=== PATIENT | male | born 1930 | race Caucasian/White ===

== ENCOUNTER 2016-08-04 16:17 | Inpatient (IN) | payer MEDICARE ==
[2016-08-04] VITALS (8 sets, daily range): BP systolic 100–142; BP diastolic 52–65
[~2016-08-04] VITALS: Ht 177.8 cm; Wt 86.6 kg
[~2016-08-04 16:17] MED LIST: ADLT ASA LOW81 MG PO; ALPRAZOLAM0.25 MG OR; ASPIR-8181 MG OR; ASPIRIN ADULT L81 MG PO; BAYER ASA325 MG PO; CHILD ASA81 MG PO; COLACE100 MG PO; COLACE50 MG OR; COLACE50 MG PO; CRESTOR20 MG OR; GAS-1 OR; LIPITOR80 MG PO; LOMOTIL2.5 MG PO; LOPRESSOR OR; LOPRESSOR50 MG PO; MAG CITRATE PO; METOPROLOL TART50 MG PO; METOPROLOL25 M1 OR; MULT VITAMIN OR; NIASPAN500 MG OR; OMEPRAZOLE20 MG OR; OMEPRAZOLE20 MG PO; PAROXETINE10 MG PO; PRILOSEC20 MG OR; SMZ/TMP DS1 TAB PO; TAMAZAPAM; TEMAZEPAM15 MG OR; ZOCOR80 MG OR
[2016-08-04 17:30] LABS: HEMATOCRIT 41.4 % (39.0-50.0); HEMOGLOBIN 13.5 g/dl (14.0-18.0); IMMATURE GRANULOCYTES 0.2 % (0.0-1.0); MEAN CELL VOLUME 89.6 fL CALC (80.0-100.0); MEAN CORPUSCULAR HGB 29.2 pG CALC (26.0-32.0); MEAN CORPUSCULAR HGB CONC 32.6 g/L CALC (32.0-36.0); NEUT# 5.64 thou/uL (1.82-7.42); RED BLOOD COUNT 4.62 mill/uL (4.70-6.10); RED CELL DISTRI WIDTH 13.9 % (11.5-15.5)
[2016-08-04 18:08] LABS: ALKALINE PHOSPHATASE 130 u/l (38-126); ANION GAP 17 (6-22 (CALC)); BILIRUBIN, TOTAL 0.6 mg/dL (0.0-1.4); BUN 12 mg/dL (8-23); BUN/CREATININE RATIO 10 (12-20 (CALC)); CARBON DIOXIDE 20 mmol/l (22-30); CHLORIDE 107 mmol/l (95-108); CREATININE 1.2 mg/dL (0.7-1.3); GFR 58 ML/MIN (>=60 (CALC)); GFR FOR AFR.AMER. > 60 ML/MIN (>=60 (CALC)); GLUCOSE 111 mg/dL (82-115); POTASSIUM 3.8 mmol/l (3.5-5.1); SGOT/AST 33 u/l (19-48); SGPT/ALT 31 u/l (11-66); SODIUM 141 mmol/l (137-146); TOTAL PROTEIN 7.7 g/dL (6.3-8.2)
[2016-08-04 18:20] LABS: MYOGLOBIN 110 ng/mL (0 - 121)
[2016-08-04 18:32] LABS: PROTHROMBIN TIME 10.6 SECONDS (9.0-12.5)
[2016-08-04 20:48] LABS: URINE BILIRUBIN - DIPSTICK NEGATIVE (NEGATIVE); URINE BLOOD DIPSTICK TRACE-INTACT (NEGATIVE); URINE CLARITY CLEAR; URINE COLOR YELLOW; URINE GLUCOSE - DIPSTICK NEGATIVE (NEGATIVE); URINE KETONE NEGATIVE (NEGATIVE); URINE LEUK ESTERASE NEGATIVE (NEGATIVE); URINE NITRITE - DIPSTICK NEGATIVE (Negative); URINE PH 5.5 (4.5-8.0); URINE PROTEIN - DIPSTICK NEGATIVE (NEG-TRACE); URINE UROBILINOGEN - DIPSTICK 0.2 E.U./dL (0.2)
[2016-08-05 02:06] VITALS: BP 95/55
[2016-08-05 04:05] VITALS: BP 110/55
[2016-08-05 06:11] VITALS: BP 103/54
[2016-08-05 08:07] VITALS: BP 118/56
[2016-08-05 09:42] LABS: HEMATOCRIT 39.9 % (39.0-50.0); HEMOGLOBIN 13.2 g/dl (14.0-18.0); IMMATURE GRANULOCYTES 0.3 % (0.0-1.0); MEAN CELL VOLUME 90.1 fL CALC (80.0-100.0); MEAN CORPUSCULAR HGB 29.8 pG CALC (26.0-32.0); MEAN CORPUSCULAR HGB CONC 33.1 g/L CALC (32.0-36.0); NEUT# 4.67 thou/uL (1.82-7.42); RED BLOOD COUNT 4.43 mill/uL (4.70-6.10)
[2016-08-05] MEDS ORDERED: XARELTO20 MG PO (09:46)
[2016-08-05 09:50] LABS: ALBUMIN 3.4 g/dL (3.2-5.0); ALKALINE PHOSPHATASE 101 u/l (38-126); ANION GAP 13 (6-22 (CALC)); BILIRUBIN, TOTAL 0.8 mg/dL (0.0-1.4); BUN 10 mg/dL (8-23); BUN/CREATININE RATIO 10 (12-20 (CALC)); CALCIUM 8.8 mg/dL (8.4-10.2); CARBON DIOXIDE 26 mmol/l (22-30); CHLORIDE 107 mmol/l (95-108); GFR > 60 ML/MIN (>=60 (CALC)); GFR FOR AFR.AMER. > 60 ML/MIN (>=60 (CALC)); GLUCOSE 102 mg/dL (82-115); POTASSIUM 4.1 mmol/l (3.5-5.1); SGOT/AST 24 u/l (19-48); SGPT/ALT 27 u/l (11-66); SODIUM 142 mmol/l (137-146); TOTAL PROTEIN 6.6 g/dL (6.3-8.2)
[2016-08-05 10:37] VITALS: BP 139/69
== END 2016-08-05 11:50 | disposition home or self-care (01) | DRG 310 ==
LOC: ENPENDDIS → ED 16:17 → ED-I 17:39 → ED 18:34 → ICU 18:35
PROVIDERS: Emergency Medicine; ADMIT Internal Medicine; ATTEND Internal Medicine
DX: I48.0 Paroxysmal atrial fibrillation (principal); I10 Essential (primary) hypertension; I25.10 Atherosclerotic heart disease of native coronary artery without angina pectoris; E78.5 Hyperlipidemia, unspecified; I25.2 Old myocardial infarction; Z87.891 Personal history of nicotine dependence; Z91.14 Patient's other noncompliance with medication regimen; Z95.5 Presence of coronary angioplasty implant and graft
CPT/HCPCS: J1650

== ENCOUNTER 2016-10-27 07:47 | Inpatient (IN) | payer MEDICARE ==
[~2016-10-27] VITALS: Ht 177.8 cm; Wt 81.8 kg
[2016-10-27] VITALS (13 sets, daily range): BP systolic 99–125; BP diastolic 47–66
[~2016-10-27 07:47] MED LIST changes: +XARELTO20 MG PO
[2016-10-27] MEDS ORDERED: CARDIZEM CD240 MG PO (08:08)
[2016-10-27 08:15] LABS: HEMATOCRIT 45.6 % (39.0-50.0); HEMOGLOBIN 15.1 g/dl (14.0-18.0); IMMATURE GRANULOCYTES 0.3 % (0.0-1.0); MEAN CELL VOLUME 89.9 fL CALC (80.0-100.0); MEAN CORPUSCULAR HGB 29.8 pG CALC (26.0-32.0); MEAN CORPUSCULAR HGB CONC 33.1 g/L CALC (32.0-36.0); NEUT# 5.42 thou/uL (1.82-7.42); RED BLOOD COUNT 5.07 mill/uL (4.70-6.10); RED CELL DISTRI WIDTH 13.8 % (11.5-15.5)
[2016-10-27 08:23] LABS: ALBUMIN 4.3 g/dL (3.2-5.0); ALKALINE PHOSPHATASE 112 u/l (38-126); ANION GAP 19 (6-22 (CALC)); BILIRUBIN, TOTAL 0.8 mg/dL (0.0-1.4); BUN 10 mg/dL (8-23); BUN/CREATININE RATIO 8 (12-20 (CALC)); CALCIUM 9.1 mg/dL (8.4-10.2); CARBON DIOXIDE 21 mmol/l (22-30); CHLORIDE 106 mmol/l (95-108); CREATININE 1.4 mg/dL (0.7-1.3); GFR 48 ML/MIN (>=60 (CALC)); GFR FOR AFR.AMER. 58 ML/MIN (>=60 (CALC)); GLUCOSE 121 mg/dL (82-115); POTASSIUM 3.2 mmol/l (3.5-5.1); SGOT/AST 26 u/l (19-48); SGPT/ALT 28 u/l (11-66); SODIUM 143 mmol/l (137-146); TOTAL PROTEIN 7.6 g/dL (6.3-8.2)
[2016-10-27 08:33] LABS: PROTHROMBIN TIME 10.5 SECONDS (9.0-12.5)
[2016-10-27 08:36] LABS: MYOGLOBIN 73 ng/mL (0 - 121)
[2016-10-28 03:18] VITALS: BP 147/67
[2016-10-28 05:30] VITALS: BP 132/60
[2016-10-28 07:30] VITALS: BP 122/70
[2016-10-28 09:30] VITALS: BP 121/61
[2016-10-28 11:30] VITALS: BP 104/67
[2016-10-28 12:08] LABS: ANION GAP 14 (6-22 (CALC)); BUN 11 mg/dL (8-23); BUN/CREATININE RATIO 10 (12-20 (CALC)); CARBON DIOXIDE 26 mmol/l (22-30); CHLORIDE 105 mmol/l (95-108); GFR > 60 ML/MIN (>=60 (CALC)); GFR FOR AFR.AMER. > 60 ML/MIN (>=60 (CALC)); GLUCOSE 88 mg/dL (82-115); POTASSIUM 4.5 mmol/l (3.5-5.1); SODIUM 140 mmol/l (137-146)
== END 2016-10-28 13:15 | disposition home or self-care (01) | DRG 309 ==
LOC: ENPENDDIS → ED 07:47 → ED-I 08:48 → ED 09:01 → ICU 09:02
PROVIDERS: Emergency Medicine; ADMIT Internal Medicine; ATTEND Internal Medicine
DX: I48.0 Paroxysmal atrial fibrillation (principal); N17.9 Acute kidney failure, unspecified; I10 Essential (primary) hypertension; I25.10 Atherosclerotic heart disease of native coronary artery without angina pectoris; E87.6 Hypokalemia; E78.5 Hyperlipidemia, unspecified; I25.2 Old myocardial infarction; Z85.038 Personal history of other malignant neoplasm of large intestine; Z93.3 Colostomy status; Z95.5 Presence of coronary angioplasty implant and graft; Z79.01 Long term (current) use of anticoagulants; Z87.891 Personal history of nicotine dependence

== ENCOUNTER 2018-11-22 08:11 | Emergency (ER) | payer MEDICARE ==
[~2018-11-22] VITALS: Ht 177.8 cm; Wt 80.0 kg
[~2018-11-22 08:11] MED LIST changes: +CARDIZEM CD240 MG PO
[2018-11-22 08:54] VITALS: BP 138/77
== END 2018-11-22 08:55 | disposition home or self-care (01) ==
LOC: ED 08:11
DX: B08.4 Enteroviral vesicular stomatitis with exanthem (principal); I10 Essential (primary) hypertension; I25.10 Atherosclerotic heart disease of native coronary artery without angina pectoris; I48.91 Unspecified atrial fibrillation; I25.2 Old myocardial infarction

== ENCOUNTER 2019-10-24 16:28 | Emergency (ER) | payer MEDICARE ==
[2019-10-24 17:42] LABS: IMMATURE GRANULOCYTES 0.3 % (0.0-5.0); MEAN CELL VOLUME 90.4 fL CALC (80.0-100.0); MEAN CORPUSCULAR HGB 29.3 pG CALC (26.0-32.0); MEAN CORPUSCULAR HGB CONC 32.4 g/dL CAL (32.0-36.0); NEUT# 4.51 thou/uL (1.82-7.42); RED BLOOD COUNT 4.37 mill/uL (4.70-6.10); RED CELL DISTRI WIDTH 14.3 % (11.5-15.5)
[2019-10-24 17:49] LABS: HEMATOCRIT 39.5 % (39.0-50.0); HEMOGLOBIN 12.8 g/dl (14.0-18.0)
[2019-10-24 17:57] LABS: ALBUMIN 3.8 g/dL (3.2-5.0); ALKALINE PHOSPHATASE 106 u/l (38-126); ANION GAP 13 (6-22 (CALC)); BILIRUBIN, TOTAL 0.7 mg/dL (0.0-1.4); BUN 12 mg/dL (8-23); BUN/CREATININE RATIO 10 (12-20 (CALC)); CARBON DIOXIDE 23 mmol/l (22-30); CHLORIDE 105 mmol/l (95-108); CREATININE 1.2 mg/dL (0.7-1.3); GFR 57 ML/MIN (>=60 (CALC)); GFR FOR AFR.AMER. > 60 ML/MIN (>=60 (CALC)); POTASSIUM 3.9 mmol/l (3.5-5.1); SGOT/AST 27 u/l (19-48); SODIUM 137 mmol/l (137-146); TOTAL PROTEIN 7.1 g/dL (6.3-8.2)
[2019-10-24 17:58] LABS: ACT PARTIAL THROMBO TIME 27.7 SECONDS (20.0-32.5); PROTHROMBIN TIME 10.6 SECONDS (9.0-12.5)
[2019-10-24 18:40] VITALS: BP 185/85
== END 2019-10-24 18:40 | disposition home or self-care (01) ==
LOC: ED 16:28
DX: R20.2 Paresthesia of skin (principal); I10 Essential (primary) hypertension; I25.10 Atherosclerotic heart disease of native coronary artery without angina pectoris; I25.2 Old myocardial infarction; I48.91 Unspecified atrial fibrillation

== ENCOUNTER 2020-02-04 10:44 | Emergency (ER) | payer OTHER, MEDICARE ==
[~2020-02-04] VITALS: Ht 177.8 cm; Wt 84.0 kg
[2020-02-04] MEDS ORDERED: MUPIROCIN21 TOP (12:09)
[2020-02-04 12:10] VITALS: BP 148/70
== END 2020-02-04 12:10 | disposition home or self-care (01) | DRG 204 ==
LOC: ED 10:44
DX: R07.81 Pleurodynia (principal); S41.111A Laceration without foreign body of right upper arm, initial encounter; I10 Essential (primary) hypertension; I25.10 Atherosclerotic heart disease of native coronary artery without angina pectoris; I48.91 Unspecified atrial fibrillation; I25.2 Old myocardial infarction; F17.200 Nicotine dependence, unspecified, uncomplicated; W11.XXXA Fall on and from ladder, initial encounter; Y93.89 Activity, other specified; Y92.009 Unspecified place in unspecified non-institutional (private) residence as the place of occurrence of the external cause; Z95.5 Presence of coronary angioplasty implant and graft

== ENCOUNTER 2021-01-15 09:38 | Inpatient (IN) | payer OTHER, MEDICARE ==
[~2021-01-15] VITALS: Ht 177.8 cm; Wt 66.6 kg
[~2021-01-15 09:38] MED LIST changes: +MUPIROCIN21 TOP
[2021-01-15 10:32] LABS: HEMATOCRIT 41.3 % (39.0-50.0); IMMATURE GRANULOCYTES 0.2 % (0.0-5.0); MEAN CELL VOLUME 94.7 fL CALC (80.0-100.0); MEAN CORPUSCULAR HGB 29.8 pG CALC (26.0-32.0); MEAN CORPUSCULAR HGB CONC 31.5 g/dL CAL (32.0-36.0); NEUT# 6.65 thou/uL (1.82-7.42); RED BLOOD COUNT 4.36 mill/uL (4.70-6.10); RED CELL DISTRI WIDTH 14.1 % (11.5-15.5)
[2021-01-15 10:39] LABS: PROTHROMBIN TIME 10.2 SECONDS (9.0-12.5)
[2021-01-15 10:40] LABS: ALBUMIN 4.1 g/dL (3.2-5.0); ALKALINE PHOSPHATASE 101 u/l (38-126); ANION GAP 12 (6-22 (CALC)); BILIRUBIN, TOTAL 0.9 mg/dL (0.0-1.4); BUN 15 mg/dL (8-23); BUN/CREATININE RATIO 12 (12-20 (CALC)); CARBON DIOXIDE 25 mmol/l (22-30); CHLORIDE 104 mmol/l (95-108); CREATININE 1.3 mg/dL (0.7-1.3); GFR 52 ML/MIN (>=60 (CALC)); GFR FOR AFR.AMER. > 60 ML/MIN (>=60 (CALC)); POTASSIUM 4.3 mmol/l (3.5-5.1); SGOT/AST 35 u/l (19-48); SODIUM 136 mmol/l (137-146); TOTAL PROTEIN 7.5 g/dL (6.3-8.2)
[2021-01-15 10:52] LABS: MYOGLOBIN 479 ng/mL (0 - 121)
[2021-01-15] MEDS ORDERED: ATORVASTATIN CA80 MG PO (11:39)
[2021-01-15 20:00] VITALS: BP 149/66
[2021-01-16] VITALS (7 sets, daily range): BP systolic 74–157; BP diastolic 52–81
[2021-01-16 06:04] LABS: HEMATOCRIT 40.3 % (39.0-50.0); HEMOGLOBIN 12.8 g/dl (14.0-18.0); MEAN CELL VOLUME 94.8 fL CALC (80.0-100.0); MEAN CORPUSCULAR HGB 30.1 pG CALC (26.0-32.0); MEAN CORPUSCULAR HGB CONC 31.8 g/dL CAL (32.0-36.0); RED BLOOD COUNT 4.25 mill/uL (4.70-6.10)
[2021-01-16 06:34] LABS: ANION GAP 12 (6-22 (CALC)); BUN 12 mg/dL (8-23); BUN/CREATININE RATIO 12 (12-20 (CALC)); CALCULATED LDLCHOLESTEROL 61 mg/dL (62-129 (CALC)); CARBON DIOXIDE 24 mmol/l (22-30); CHLORIDE 105 mmol/l (95-108); CHOLESTEROL HDL RATIO 2.7 (<4.4 (CALC)); CREATININE 1.1 mg/dL (0.7-1.3); GFR > 60 ML/MIN (>=60 (CALC)); GFR FOR AFR.AMER. > 60 ML/MIN (>=60 (CALC)); HDL CHOLESTEROL 46 mg/dL (>=40); POTASSIUM 3.8 mmol/l (3.5-5.1); SODIUM 138 mmol/l (137-146); TOTAL CHOLESTEROL 121 mg/dl (0-199); TOTAL TRIGLYCERIDES 71 mg/dl (30-149); VLDL CHOLESTROL 14 mg/dl (0-38 (CALC))
[2021-01-17 00:35] VITALS: BP 142/75
[2021-01-17 04:53] VITALS: BP 131/67
[2021-01-17 06:03] LABS: ANION GAP 12 (6-22 (CALC)); BUN 14 mg/dL (8-23); BUN/CREATININE RATIO 14 (12-20 (CALC)); CARBON DIOXIDE 25 mmol/l (22-30); CHLORIDE 105 mmol/l (95-108); GFR > 60 ML/MIN (>=60 (CALC)); GFR FOR AFR.AMER. > 60 ML/MIN (>=60 (CALC)); MAGNESIUM 2.1 mg/dL (1.6-2.3); POTASSIUM 4.4 mmol/l (3.5-5.1); SODIUM 137 mmol/l (137-146)
[2021-01-17 06:28] LABS: HEMATOCRIT 39.1 % (39.0-50.0); HEMOGLOBIN 12.6 g/dl (14.0-18.0); MEAN CELL VOLUME 94.2 fL CALC (80.0-100.0); MEAN CORPUSCULAR HGB 30.4 pG CALC (26.0-32.0); MEAN CORPUSCULAR HGB CONC 32.2 g/dL CAL (32.0-36.0); RED BLOOD COUNT 4.15 mill/uL (4.70-6.10); RED CELL DISTRI WIDTH 13.9 % (11.5-15.5)
[2021-01-17 07:02] VITALS: BP 155/77
[2021-01-17 10:33] VITALS: BP 118/67
[2021-01-17] MEDS ORDERED: ASPIRIN REGULA325 M1 PO (12:14)
== END 2021-01-17 12:59 | disposition home health service (06) | DRG 66 ==
LOC: ED 09:38 → ED-I 10:35 → ED 12:41 → ED-I 12:42 → MS2 23:50 → ED-I 01-16 13:21 → MS2 01-16 13:21
PROVIDERS: Family Medicine; Nurse Practitioner; ADMIT Hospitalist; ATTEND Hospitalist
DX: I63.50 Cerebral infarction due to unspecified occlusion or stenosis of unspecified cerebral artery (principal); R47.81 Slurred speech; R29.810 Facial weakness; R29.704 NIHSS score 4; I10 Essential (primary) hypertension; I25.10 Atherosclerotic heart disease of native coronary artery without angina pectoris; E78.5 Hyperlipidemia, unspecified; I48.91 Unspecified atrial fibrillation; G20 Parkinson's disease; I25.2 Old myocardial infarction; Z85.038 Personal history of other malignant neoplasm of large intestine; Z87.891 Personal history of nicotine dependence; Z95.5 Presence of coronary angioplasty implant and graft; Z20.822 Contact with and (suspected) exposure to COVID-19

== ENCOUNTER 2021-04-16 13:30 | Emergency (ER) | payer OTHER, MEDICARE ==
[~2021-04-16] VITALS: Ht 177.8 cm; Wt 70.0 kg
[~2021-04-16 13:30] MED LIST changes: +ASPIRIN REGULA325 M1 PO; +ATORVASTATIN CA80 MG PO
[2021-04-16 14:01] VITALS: BP 138/63
[2021-04-16 14:01] LABS: GFR 57 ML/MIN (>=60 (CALC)); GFR FOR AFR.AMER. > 60 ML/MIN (>=60 (CALC))
[2021-04-16 14:04] LABS: HEMOGLOBIN 12.4 g/dl (14.0-18.0); IMMATURE GRANULOCYTES 1.6 % (0.0-5.0); MEAN CELL VOLUME 93.5 fL CALC (80.0-100.0); MEAN CORPUSCULAR HGB 29.7 pG CALC (26.0-32.0); MEAN CORPUSCULAR HGB CONC 31.8 g/dL CAL (32.0-36.0); NEUT# 8.22 thou/uL (1.82-7.42); RED BLOOD COUNT 4.17 mill/uL (4.70-6.10); RED CELL DISTRI WIDTH 14.1 % (11.5-15.5)
[2021-04-16 14:17] LABS: ALBUMIN 3.8 g/dL (3.2-5.0); ALKALINE PHOSPHATASE 103 u/l (38-126); ANION GAP 12 (6-22 (CALC)); BILIRUBIN, TOTAL 0.9 mg/dL (0.0-1.4); BUN 14 mg/dL (8-23); BUN/CREATININE RATIO 12 (12-20 (CALC)); CARBON DIOXIDE 25 mmol/l (22-30); CHLORIDE 106 mmol/l (95-108); CREATININE 1.2 mg/dL (0.7-1.3); GFR 57 ML/MIN (>=60 (CALC)); GFR FOR AFR.AMER. > 60 ML/MIN (>=60 (CALC)); LIPASE 78 u/l (23-300); POTASSIUM 4.4 mmol/l (3.5-5.1); SGOT/AST 37 u/l (19-48); SODIUM 138 mmol/l (137-146); TOTAL PROTEIN 7.2 g/dL (6.3-8.2)
== END 2021-04-16 15:45 | disposition short-term general hospital (02) | DRG 87 ==
LOC: ED 13:30
PROVIDERS: Family Medicine
DX: S06.300A Unspecified focal traumatic brain injury without loss of consciousness, initial encounter (principal); M54.50 Low back pain, unspecified; S41.111A Laceration without foreign body of right upper arm, initial encounter; S81.811A Laceration without foreign body, right lower leg, initial encounter; I25.2 Old myocardial infarction; I10 Essential (primary) hypertension; I25.10 Atherosclerotic heart disease of native coronary artery without angina pectoris; I48.91 Unspecified atrial fibrillation; E78.5 Hyperlipidemia, unspecified; W11.XXXA Fall on and from ladder, initial encounter; Z95.5 Presence of coronary angioplasty implant and graft; Z86.73 Personal history of transient ischemic attack (TIA), and cerebral infarction without residual deficits; Z85.038 Personal history of other malignant neoplasm of large intestine
CPT/HCPCS: J1953; Q9967

== ENCOUNTER 2021-05-18 09:38 | Inpatient (IN) | payer OTHER, MEDICARE ==
[~2021-05-18] VITALS: Ht 177.8 cm; Wt 72.0 kg
--- NOTE | 2021-05-18 09:38 | NUR ---
PT TO ROOM VIA EMS
--- NOTE | 2021-05-18 10:15 | NUR ---
PT REPORTS "GAS PAIN" ACROSS LOWER ABDOMEN AND RATES AT 10/10. PT REPORTS USUALLY IN THE MORNINGS HE HAS A SIMILAR PAIN BUT USUALLY PASSES GAS THROUGH HIS OSTOMY, BUT NOT TODAY. PT WITH +BOWEL SOUNDS. PT RECOVERING FROM INJURIES SUSTAINED IN A RECENT FALL. PT RETURNED HOME ON SUNDAY FROM REHAB FACILITY. PT WEARS BRACE AROUND TORSO FOR FRACTURE IN BACK.
[2021-05-18 11:06] LABS: ALBUMIN 3.4 g/dL (3.2-5.0); ALKALINE PHOSPHATASE 196 u/l (38-126); AMYLASE 76 u/l (30-110); ANION GAP 14 (6-22 (CALC)); BILIRUBIN, TOTAL 0.6 mg/dL (0.0-1.4); BUN 19 mg/dL (8-23); BUN/CREATININE RATIO 18 (12-20 (CALC)); CARBON DIOXIDE 25 mmol/l (22-30); CHLORIDE 102 mmol/l (95-108); CREATININE 1.1 mg/dL (0.7-1.3); GFR > 60 ML/MIN (>=60 (CALC)); GFR FOR AFR.AMER. > 60 ML/MIN (>=60 (CALC)); LIPASE 142 u/l (23-300); POTASSIUM 4.2 mmol/l (3.5-5.1); SGOT/AST 25 u/l (19-48); SODIUM 137 mmol/l (137-146); TOTAL PROTEIN 6.8 g/dL (6.3-8.2)
[2021-05-18 11:08] LABS: HEMATOCRIT 37.6 % (39.0-50.0); HEMOGLOBIN 11.8 g/dl (14.0-18.0); IMMATURE GRANULOCYTES 0.1 % (0.0-5.0); MEAN CELL VOLUME 94.7 fL CALC (80.0-100.0); MEAN CORPUSCULAR HGB 29.7 pG CALC (26.0-32.0); MEAN CORPUSCULAR HGB CONC 31.4 g/dL CAL (32.0-36.0); NEUT# 6.91 thou/uL (1.82-7.42); RED BLOOD COUNT 3.97 mill/uL (4.70-6.10)
--- NOTE | 2021-05-18 11:15 | NUR ---
PT CONTINUES TO COMPLAIN OF ABDOMINAL PAIN, NO CHANGE AFTER MEDICATION. PT STATES "I WONDER IF THERE IS SOME STOOL BLOCKING". PT DENIES ANY HISTORY OF BOWEL BLOCKAGE. PT WITH NEIGHBOR AT THE BEDSIDE. PT STABLE.
--- NOTE | 2021-05-18 12:15 | NUR ---
PT RESTING COMFORTABLY, PAIN IMPROVED. WILL CONTINUE TO MONITOR.
--- NOTE | 2021-05-18 13:15 | NUR ---
PT'S SON IS PRESENT AND ABLE TO PROVIDE INFORMATION ABOUT PT'S HOME MEDICATIONS. PT IS ASLEEP AT THIS TIME, VSS. WILL CONTINUE TO MONITOR.
--- NOTE | 2021-05-18 13:30 | NUR ---
DR CRAIG IN TO SPEAK WITH PT AND SON ABOUT IMAGING RESULTS AND POC
--- NOTE | 2021-05-18 13:44 | NUR ---
HOSPITALIST IN TO SPEAK WITH PT AND SON
--- NOTE | 2021-05-18 14:30 | NUR ---
EKG PERFORMED, PT'S SON LEAVING AND WILL RETURN LATER. PT RESTING INTERMITTENLY WITH SURGES OF ABDOMINAL PAIN. PT STABLE, WILL CONTINUE TO MONITOR.
--- NOTE | 2021-05-18 15:10 | NUR ---
CALL PLACED TO MED/SURG TO GIVE REPORT-RN WILL RETURN CALL.
--- NOTE | 2021-05-18 15:14 | NUR ---
PT RESTING WITH EYES CLOSED. VSS. WILL CONTINUE TO MONITOR.
--- NOTE | 2021-05-18 15:40 | NUR ---
MS NURSE STILL UNABLE TO TAKE REPORT. PATIENT RESTING COMFORTABLY IN STRETCHER. CALL [facility] WITHIN REACH.
--- NOTE | 2021-05-18 16:22 | NUR ---
REPORT RECIEVED FROM ELMA MARTIN FROM ER.
--- NOTE | 2021-05-18 16:25 | NUR ---
ELMA SALDAÑA CALLED AND SBAR REPORT GIVEN. PT TO GO TO ROOM 274.
[2021-05-18 16:35] VITALS: BP 126/62
--- NOTE | 2021-05-18 16:40 | NUR ---
PT TO MED/SURG VIA STRETCHER IN STABLE CONDITION. PT'S BELONGINGS AND PAPERWORK HANDED OFF TO ELMA SALDAÑA.
--- NOTE | 2021-05-18 17:14 | NUR ---
PT REFUSES TO ANSWER ADMISSION QUESTIONS AT THIS TIME DUE TO BEING IN TOO MUCH PAIN. CALL LIGHT WITHIN REACH.
--- NOTE | 2021-05-18 18:10 | NUR ---
PT STILL DENIES TO ANSWER ADMISSION QUESTIONS. ENCOURAGED PT TO USE CALL LIGHT. CALL LIGHT WITHIN REACH.
[2021-05-18 18:20] VITALS: BP 130/78
--- NOTE | 2021-05-18 18:56 | NUR ---
ATTEMPTED ONCE AGAIN TO ASK ADMISSION QUESTIONS STILL DENINES. CALL LIGHT WITHIN REACH
--- NOTE | 2021-05-18 19:20 | NUR ---
PT AWAKE WATCHING TV. REPORTS FEELING MUCH BETTER. ADMISSION COMPLETED AT THIS TIME AND ADMISSION ASSESSMENT COMPLETED AT THIS TIME. I WAS TOLD ON REPORT BY DAY NURSE THAT THE PT WAS IN PAIN EARLIER ON HER SHIFT AND REFUSED TO ANSWER QUESTIONS 3X, BUT PT ANSWERED APPROPRIATELY W/OUT COMPLAINT AT THIS TIME, SO I WAS ABLE TO COMPLETE ADMISSION ASSESSMENT AND QUESTIONARE AT THIS TIME. POC WAS DISCUSSED WITH THE PT AT THIS TIME AND HE WAS ENCOURAGED TO CALL NEEDS ARISE. I WAS LEAVING THE ROOM THE PT ASKED IF I WOULD HAND HIM HIS CELLPHONE, UPON LOOKING, I WAS UNABLE TO FIND A CELLPHONE, HE STATED "I PROBOBALY LEFT IT OVER ON THE TABLE OVER THERE IN MY ROOM" PT WAS POINTING TOWARD THE WINDOW. I REORIENTED HIM GENTLY TO THE FACT THAT HE WAS IN THE HOSPITAL, HE ACKNOWLEDGED THAT HE DID KNOW THAT, BUT THAT HE PLACED HIS PHONE ON THE TABLE THROUGH THE WINDOW. THERE IS NOT A TABLE ON THE OTHER SIDE OF THE PT'S WINDOW. BED ALARM WAS PLACED ON AT THIS TIME PREVENTATIVE FOR POSSIBLE CONFUSION OR FORGETFULLNESS. PT OTHERWISE SEEMED LOCX3 AND WAS APPROPRIATE ANSWERING QUESTIONS WHEN ASKED.
[2021-05-18 20:00] VITALS: BP 112/70
--- NOTE | 2021-05-18 21:45 | NUR ---
CALL PLACED TO PHARMACY TO ATTEMPT TO ADVANCE PLACEMENT OF GASTRO/CONTRAST ORDER, SPOKE TO MIKEY. ANIMAL STUNNER HERE WITH SELF ON MED SURG TO CONFIRM ORDER WAS PLACED. CONFIRMED RECEIPT BY [facility].
--- NOTE | 2021-05-18 21:57 | NUR ---
PT MEDICATED ORDERS PROVIDE. PT WAS SLEEPING I ENTERED THE ROOM. GENERATION MANAGER VISITED ROOM TO DISCUSS CONTRAST ORDERS/WILL CONTACT [facility] FOR CONFIRMATION AND TO EXPEDITE ORDER.
--- NOTE | 2021-05-18 22:45 | NUR ---
CALLED [facility] RECONFIRMING RECEIPT OF CONTRAST ORDER, SPOKE WITH ADAIR PHARMACIST WHO NOW STATES THAT THEY NEVER RECEIVED THE ORDERS. I FAXED THE GASTROGRAFIN ORDER AT THIS TIME, SHE STATED THAT SHE WILL PLACE ODER R/WAY.
--- NOTE | 2021-05-18 23:19 | NUR ---
PT MEDICATED WITH GASTROGRAFIN AND JUICE COMBO AT THIS TIME. NO S/O DISTRESS AND PT PLEASANTLY AGREED TO DRINK CONTRAST/JUICE. STATED "OH THAT IS GOOD." PT ASKED FOR HIS WATCH, PROVIDED HIS BAG OF BELONGINGS AND ASSISTED LOOKING FOR WATCH, UNABLE TO LOCATE, POSSIBLE CONFUSION ON BELONGINS, I WILL CHECK PT'S CHART FOR BELONGING LIST. PT IS ABLE TO TELL ME HIS NAME, , CURRENT YEAR OF 2020 QUICKLY, BUT WAS UNABLE TO TELL ME HIS LOCATION AT THIS TIME.
[2021-05-19] VITALS (19 sets, daily range): BP systolic 95–152; BP diastolic 00–72
--- NOTE | 2021-05-19 00:29 | NUR ---
PT STARTED DRINKING THIRD DOSE OF GASTROGRAFIN AT THIS TIME, RADIOLOGY NOTIFIED.
--- NOTE | 2021-05-19 01:05 | NUR ---
ENTERED ROOM TO ASSIST IN PREPPING PT FOR RADIOLOGY SCAN. WE INFORMED THE PT IT WAS TIME TO GO DOWN AND HE ASKED THAT WE HELP HIM EMPTY HIS COLOSTOMY. UPON INSPECTION HIS COLOSTOMY WAS VERY FULL OF GAS AND 400CC OF BLOOD WITH SMALL AMOUNT OF FORMED STOOL WAS EMPTIED WITH ODOR OF GIBLOOD. I ASKED THE PT IF HE HAS BEEN HAVING THAT, HE REPLIED "SOME". THE FLIGHT OPERATION COORDINATOR WAS ASSISTING THE PT INTO THE WHEEL CHAIR, THE PT BECAME LIMP AND WAS NON-RESPONSIVE, RAPID RESPONSE WAS CALLED AND TRANSIT BUS OPERATOR, FLIGHT OPERATION COORDINATOR ON FLOOR AND FELLOW FLOOR NURSE HAD TO FORCE THE PT FROM THE WHEEL CHAIR TO THE BED WHERE HE BEGAN TO COME TO AND RESPOND TO US VERY GROGGY IN APPEARANCE. V/S OBTAINED 100SBP PALPATED, 02 99%, AFEBRILE, HR100, GLUCOSE 178. EKG WAS ORDERED [id number], TYPE AND SCREENED, OCCULT STOOL ALL ORDERED.
[2021-05-19 01:48] LABS: HEMATOCRIT 47.9 % (39.0-50.0); HEMOGLOBIN 14.9 g/dl (14.0-18.0)
--- NOTE | 2021-05-19 01:55 | NUR ---
PHYSICIAN WAS NOTIFIED OF RAPID RESPONSE AND ORDERS PLACED. NEW ORDERS RECEIVED AT THIS TIME AND PLACED IN CHART AND FAXED TO [facility]. PT TAKEN TO RADIOLOGY FOR AWAITED SCAN ORDERS PROVIDE AND PER PHYSICIAN REQUEST. PT WAS TAKEN ON STRETCHER. BP NOW 111/65.
--- NOTE | 2021-05-19 02:15 | NUR ---
PT RETURNED TO MED SURG UNIT VIA STRETCHER ACCOMPANIED BY KEVIN. PT TOLERATED WELL AND WAS ASSISTED BACK TO THE BED FROM STRETCHER. THE PT APPEARS TOO WEAKENED TO SELF TRANSFER, DENIES ANY COMPLAINTS AT THIS TIME. MODERATE AMOUNT OF LIQUID AND AIR IS IN COLOSTOMY BAG AT THIS TIME.
--- NOTE | 2021-05-19 03:30 | NUR ---
PHYSICIAN CUT OUT AND MARKING MACHINE OPERATOR NOTIFIED OF POSSIBLE ALLERGY CROSS-SENSATIVITY, ORDERS TO HOLD PROTONIX AT THIS TIME. PHYSICIAN ALSO WAS NOTIFIED OF HGB RESULTS AT THIS TIME. OCCULT STOOL HAS NOT RESULTED YET AT THIS TIME, BUT 400CC OF BLOODY LIQUID EMPTIED FROM COLOSTOMY. BP 115/63,HR102, 98.4T,98%02. PT APPEARS STABLE AT THIS TIME AND HAS EYES CLOSED, BUT AWAKENS AND RESPONDS APPROPRIATLEY TO MY VOICE. IVF ADMINISTERING @125/ORDERS. REPEAT LABS @0500.
--- NOTE | 2021-05-19 05:01 | NUR ---
PT IS SLEEPING, SMALL AMOUNT OF BLOODY WATERY STOOL IN COLOSTOMY BAG W/OUT AIR/NEED FOR BURPING AT THIS TIME. IVPUMP CLEARED AT THIS TIME. NO S/O DISTRESS NOTED.
[2021-05-19 05:15] LABS: HEMATOCRIT 47.7 % (39.0-50.0); HEMOGLOBIN 15.4 g/dl (14.0-18.0); MEAN CELL VOLUME 93.2 fL CALC (80.0-100.0); MEAN CORPUSCULAR HGB 30.1 pG CALC (26.0-32.0); MEAN CORPUSCULAR HGB CONC 32.3 g/dL CAL (32.0-36.0); RED BLOOD COUNT 5.12 mill/uL (4.70-6.10); RED CELL DISTRI WIDTH 14.2 % (11.5-15.5)
[2021-05-19 05:29] LABS: CREATININE 1.6 mg/dL (0.7-1.3); MAGNESIUM 2.2 mg/dL (1.6-2.3)
[2021-05-19 05:36] LABS: POTASSIUM 5.6 mmol/l (3.5-5.1)
--- NOTE | 2021-05-19 05:57 | NUR ---
PT IS ASKING FOR ICEWATER, REORIENTED HIM TO BEING NPO NOW THAT HIS GASTROFIN IS COMPLETED AND SCANS COMPLETE JUST IN CASE FURTHER PROCEDURES ARE NEEDED TODAY, VERBALIZED UNDERSTANDING. PT HAS BEEN NPO SINCE 99/COMPLETION OF GASTROGRAFIN.
--- NOTE | 2021-05-19 06:45 | NUR ---
PT TAKEN TO RADIOLOGY FOR KUB VIA STRETCHER ACCOMPANIED BY DELORIS BROWN. PT BECOMES VERY WEAK AND APPEARS SOB UPON ANY MOVEMENT. 02 SAT 99%
--- NOTE | 2021-05-19 07:05 | NUR ---
REPORT RECEIVED FROM CASSIDY. PATIENT BACK FROM X-RAY. BED ALARM IN PLACE. CALL LIGHT IN REACH.
--- NOTE | 2021-05-19 08:00 | NUR ---
ASSESSMENT DONE. PATIENT IS ALERT AND OREINT X3 BUT FORGETFUL AT TIMES. PATIENT DENIES PAIN AT THIS TIME. PATIENT STATED HE JUST FEELS SICK AND WANTS WATER. EXPLAIN TO PATIENT THAT HE IS NPO. PATIENT VERBLAIZED UNDERSTANDING. TELE IN PLACE. COLOSTOMY BAG IN PLACE WITH BLOODY STOOL NOTED. SAFETY PRECAUTIONS REINFORCED AND CALL LIGHT IN REACH.
--- NOTE | 2021-05-19 09:53 | NUR ---
PATIENT WENT TO OR VIA BED BY ELMA HOLLIS AND ELMA BARNEY.
[2021-05-19 11:13] LABS: URINE BILIRUBIN - DIPSTICK NEGATIVE (NEGATIVE); URINE BLOOD DIPSTICK NEGATIVE (NEGATIVE); URINE COLOR YELLOW; URINE GLUCOSE - DIPSTICK NEGATIVE (NEGATIVE); URINE KETONE TRACE mg/dL (NEGATIVE); URINE LEUK ESTERASE NEGATIVE (NEGATIVE); URINE PROTEIN - DIPSTICK TRACE mg/dL (NEG-TRACE); URINE SPECIFIC GRAVITY 1.025; URINE UROBILINOGEN - DIPSTICK 0.2 E.U./dL (0.2)
[2021-05-19 11:20] LABS: URINE NITRITE - DIPSTICK NEGATIVE (Negative)
--- NOTE | 2021-05-19 13:32 | NUR ---
RECIEVED FROM OR TO ICU 8 SEDATED. MID ABD DSG NOTED. DRY CLEAN AND INTACT. LT LATERAL ABD COLOSTOMY NOTED. 7.5 ET TUBE 23 AT THE BOTTOM LIP.
--- NOTE | 2021-05-19 14:30 | NUR ---
PROPOFOL GOING AT 20MCG/KG/MIN 9.6ML/HR.
--- NOTE | 2021-05-19 15:40 | NUR ---
NEIGHBOR VISITING AT BEDSIDE.
--- NOTE | 2021-05-19 16:46 | NUR ---
MAX BALDWIN CALLED TO GET UPDATE ON PT.
--- NOTE | 2021-05-19 18:20 | NUR ---
TORADOL AND IV ZOSYN GIVEN PER EMAR. 20GA PIV PLACED TO LT WRIST.
--- NOTE | 2021-05-19 19:30 | NUR ---
sedated. vent cont assisted by pt. potline monitor shows sinus rhythm hr 96. ivf infusing we. abd dsg cdi. colostomy in place draining mod amt reddish brown liquid stool. godinez cath in place. urine clear yellow. bilat scds cont. turned & repositioned. requires total care for all needs. fall precautions cont.
--- NOTE | 2021-05-19 22:00 | NUR ---
vent cont assisted by pt. conts to have minimal uop.
[2021-05-20] VITALS (20 sets, daily range): BP systolic 90–151; BP diastolic 42–66
--- NOTE | 2021-05-20 00:01 | NUR ---
eyes closed. no apparent distress. child monitor shows sinus rhythm hr 90.
--- NOTE | 2021-05-20 02:00 | NUR ---
minimum uop cont. no distress. compliance monitor shows sinus rhythm.
--- NOTE | 2021-05-20 04:30 | NUR ---
lab hre. blood drawn.
--- NOTE | 2021-05-20 04:50 | NUR ---
xray here. pcxr obtained.
--- NOTE | 2021-05-20 05:00 | NUR ---
complete bed bath & linen change x2 assists.
[2021-05-20 05:08] LABS: MEAN CORPUSCULAR HGB 30.7 pG CALC (26.0-32.0); MEAN CORPUSCULAR HGB CONC 30.9 g/dL CAL (32.0-36.0); RED BLOOD COUNT 4.01 mill/uL (4.70-6.10); RED CELL DISTRI WIDTH 14.1 % (11.5-15.5)
[2021-05-20 05:20] LABS: HEMATOCRIT 39.8 % (39.0-50.0); HEMOGLOBIN 12.3 g/dl (14.0-18.0); MEAN CELL VOLUME 99.3 fL CALC (80.0-100.0)
[2021-05-20 05:25] LABS: CREATININE 1.9 mg/dL (0.7-1.3); MAGNESIUM 1.9 mg/dL (1.6-2.3)
[2021-05-20 05:27] LABS: POTASSIUM 5.2 mmol/l (3.5-5.1)
--- NOTE | 2021-05-20 05:50 | NUR ---
rt here. abgs drawn.
--- NOTE | 2021-05-20 06:48 | NUR ---
PSV INITIATED AT 0635. INITIAL SETTINGS 09/27 .40. RR= 23, MIN VENT = 13.5, VT= 570, PEAK P = 8.7, MEAN P = 5.4, HR= 95, SPO2= 93. 0640 RR= 22, MV= 11.1, VT= 560, PEAK P= 7.2, MEAN P= 5.1, HR= 92, SPO2= 94 LICENSE REGISTRATION EXAMINER TO MONITOR.
--- NOTE | 2021-05-20 07:50 | NUR ---
PROPOFOL HAS BEEN WEANED OFF GRADUALLY FROM 20 MKM TO ZERO. PT SEEN TO HAVE SLIGHT MOVEMENTS HE IS WAKING UP, NOTHING PURPOSEFUL YET. SATS 98% ON VENT, ANTICIPATE EXTUBATION THIS MORNING.
--- NOTE | 2021-05-20 08:38 | NUR ---
PT HAS BEEN EXTUBATED WITHOUT INCIDENT. PT PLACED ON HFNC AT 10 LPM, BUT THIS HAS BEEN WEANED DOWN TO 2 LPM, SEEN AT 100%. PT DOES RESPOND APPROPRIATELY TO MOVING LIMBS AND SQUEEZING HANDS. WEAK COUGH, AIDNE USED PRN.
[2021-05-20 11:51] LABS: HEMATOCRIT 34.3 % (39.0-50.0); HEMOGLOBIN 10.9 g/dl (14.0-18.0); IMMATURE GRANULOCYTES 0.3 % (0.0-5.0); MEAN CELL VOLUME 95.8 fL CALC (80.0-100.0); MEAN CORPUSCULAR HGB 30.4 pG CALC (26.0-32.0); MEAN CORPUSCULAR HGB CONC 31.8 g/dL CAL (32.0-36.0); NEUT# 11.24 thou/uL (1.82-7.42); RED BLOOD COUNT 3.58 mill/uL (4.70-6.10); RED CELL DISTRI WIDTH 14.4 % (11.5-15.5)
[2021-05-20 12:03] LABS: ACT PARTIAL THROMBO TIME 40.4 SECONDS (20.0-32.5); INTERNATIONAL NORMALIZED RATIO 1.1 RATIO (0.7-1.3)
--- NOTE | 2021-05-20 12:44 | NUR ---
PT NOW ON RA, SATS CONTINUE 100%. PT VISITED BY HIS SON DENNY. PT CONTINUES WITH WEAK COUGH, UNABLE TO USE YANKAUER BY HIMSELF. CHAMPAGNE FLUSHED, SEEN TO RETURN URINE IMMEDIATELY, DRAINS WELL NOW. NO REPORT OF PAIN. PT STARTED ON HEPARIN DRIP PER PT WITH AFIB THIS MORNING. DRIP AT 850 UNITS HOURLY.
--- NOTE | 2021-05-20 16:11 | NUR ---
PT REMAINS AT REST IN THE BED, NO ACUTE DISTRESS OR SIGNIFICANT PAIN. PT BACK INTO AFIB RVR, RATE 150. DR ESTRADA AWARE, TO ORDER MORE LOPRESSOR. CHAMPAGNE DRAINS APPROPRIATELY. COLOSTOMY BAG WAS SEEN FILLED WITH AIR, NOTHING TO EMPTY. PT NOW CLEAR LIQUID DIET, ENJOYS WATER AND ICE CHIPS.
--- NOTE | 2021-05-20 17:49 | NUR ---
PT CONTINUES AFIB RVR. DR SEAN WEBER, HAS PLACED ORDERS FOR AMIODARONE TO BE GIVEN, AWAITING [facility]. PT DENIES CP OR SOB.
--- NOTE | 2021-05-20 19:00 | NUR ---
awakens easily. denies acute distress. cardiac monitpr shows a fib pvcs hr 117. ivf infusing well. godinez cath draining clear yellow urine. abd dsg cdi. colostomy bag intact. bilat scds & fall precautions cont.
--- NOTE | 2021-05-20 22:00 | NUR ---
awake. thinks "it's time to get up." pt reoriented with success. colostomy burped.
[2021-05-21] VITALS (19 sets, daily range): BP systolic 80–132; BP diastolic 45–65
--- NOTE | 2021-05-21 00:40 | NUR ---
awake. c/o shoulder pain "where i fell" but denies op pain. dilaudid 0.5mg ivp given. colostomy burped.
--- NOTE | 2021-05-21 01:05 | NUR ---
ict developer shows sinus rhythm hr 86 for approx 2 min then back in afib pvcs hr 110.
--- NOTE | 2021-05-21 02:00 | NUR ---
lab here. blood drawn.
[2021-05-21 02:19] LABS: IMMATURE GRANULOCYTES 0.6 % (0.0-5.0); MEAN CELL VOLUME 96.2 fL CALC (80.0-100.0); MEAN CORPUSCULAR HGB 30.4 pG CALC (26.0-32.0); MEAN CORPUSCULAR HGB CONC 31.6 g/dL CAL (32.0-36.0); NEUT# 9.41 thou/uL (1.82-7.42); RED BLOOD COUNT 2.86 mill/uL (4.70-6.10); RED CELL DISTRI WIDTH 14.3 % (11.5-15.5)
[2021-05-21 02:33] LABS: BILIRUBIN, TOTAL 0.4 mg/dL (0.0-1.4); CREATININE 1.4 mg/dL (0.7-1.3)
[2021-05-21 02:42] LABS: ALBUMIN 1.8 g/dL (3.2-5.0); POTASSIUM 3.9 mmol/l (3.5-5.1); TOTAL PROTEIN 4.1 g/dL (6.3-8.2)
[2021-05-21 02:51] LABS: HEMATOCRIT 27.5 % (39.0-50.0); HEMOGLOBIN 8.7 g/dl (14.0-18.0)
--- NOTE | 2021-05-21 05:00 | NUR ---
tenant relations coordinator shows sinus rhythm hr 80.
--- NOTE | 2021-05-21 05:40 | NUR ---
rt here. ekg obtained.
--- NOTE | 2021-05-21 07:55 | NUR ---
PT AWAKENED FOR BREAKFAST, STATES THAT HE IS THIRSTY. PT REMAINS IN SR, RATE 87. HEPARIN CONTINUES AT 450 UNITS HOURLY.
--- NOTE | 2021-05-21 12:51 | NUR ---
PT WENT INTO AFIB RVR THIS MORNING. DR ESTRADA AWARE IT HAPPENED WHEN HE WAS HERE. NO NEW ORDERS RECEIVED, BUT PT WENT BACK INTO NSR ON HIS OWN. PT CONTINUES AT REST IN THE BED, NO DISTRESS. DR FUNES HAS BEEN IN TO ROUND, STATES ALL LOOKS GOOD FROM HIS PERSPECTIVE. PT NAUSEATED, ZOFRAN GIVEN.
--- NOTE | 2021-05-21 16:17 | NUR ---
PT HAS BEEN PROVIDED A WASHUP THIS AFTERNOON. HE WAS THEN ASSISTED TO CHAIR AT BEDSIDE, WHERE HE SAT FOR OVER AN HOUR. NO COMPLAINT OF PAIN, NO DISTRESS. HR REMAINS SINUS RHYTHM.
--- NOTE | 2021-05-21 18:45 | NUR ---
SBAR RECEIVED FROM ELMA HADLEY.
--- NOTE | 2021-05-21 20:25 | NUR ---
ASSESSMENT COMPLETE. PATIENT ALERT AND ORIENTED X3. VSS. COLOSTOMY CARE COMPLETED. STOMA PINK AND BEEFY. MEDIUM, DARK BROWN, LIQUID STOOL NOTED. WAFER AND BAG CHANGED. PATIENT DENIES PAIN AT THIS TIME. HERARIN DRIP ADJUSTED. PER PROTOCOL 2500 UNIT BOLUS GIVEN AND DRIP INCREASED TO 600 UNITS PER HOUR; NEXT PTT DUE AT 0200. PATIENT COMFORTABLE, NO DISTRESS NOTED. CALL LIGHT WITHIN REACH.
--- NOTE | 2021-05-21 23:00 | NUR ---
APPROXIMATELY 2300 PATIENT HAD RHYTHM CHANGE OF AFIB RVR 150-160'S. DR. ESTRADA NOTIFIED, ORDER FOR AMIODARONE DRIP RECEIVED. PATIENT RESTING QUIETLY, NO DISTRESS NOTED. DENIES ANY SYMPTOMS OF CHEST PAIN OR DIZZINESS.
[2021-05-22] VITALS (17 sets, daily range): BP systolic 87–159; BP diastolic 54–85
--- NOTE | 2021-05-22 02:07 | NUR ---
RELIEF COOK AT BEDSIDE FOR 0200 PTT DRAW.
[2021-05-22 02:15] LABS: HEMATOCRIT 28.1 % (39.0-50.0); HEMOGLOBIN 8.9 g/dl (14.0-18.0); MEAN CELL VOLUME 94.9 fL CALC (80.0-100.0); MEAN CORPUSCULAR HGB 30.1 pG CALC (26.0-32.0); MEAN CORPUSCULAR HGB CONC 31.7 g/dL CAL (32.0-36.0); RED BLOOD COUNT 2.96 mill/uL (4.70-6.10); RED CELL DISTRI WIDTH 14.5 % (11.5-15.5)
[2021-05-22 02:25] LABS: ANION GAP 8 (6-22 (CALC)); BUN 30 mg/dL (8-23); BUN/CREATININE RATIO 28 (12-20 (CALC)); CARBON DIOXIDE 19 mmol/l (22-30); CHLORIDE 117 mmol/l (95-108); CREATININE 1.1 mg/dL (0.7-1.3); GFR > 60 ML/MIN (>=60 (CALC)); GFR FOR AFR.AMER. > 60 ML/MIN (>=60 (CALC)); MAGNESIUM 2.2 mg/dL (1.6-2.3); POTASSIUM 3.5 mmol/l (3.5-5.1); SODIUM 140 mmol/l (137-146)
--- NOTE | 2021-05-22 07:18 | NUR ---
RT AT BEDSIDE
--- NOTE | 2021-05-22 07:30 | NUR ---
RECIEVED REPORT FROM EM RN
--- NOTE | 2021-05-22 07:50 | NUR ---
PT RESTING IN SEMI FOWLERS POSITION. PT IS A/O X2. EASILY REORIENTED. ASSESSMENT AND VITALS COMPLETED. BP 145/61, HR 72, O2 96% ON ROOM AIR. RESPIRATIONS ARE EVEN AND UNLABORED WITH NO DISTRESS NOTED. LUNG SOUNDS ARE DIMINISHED. BOWEL SOUNDS ARE HYPOACTIVE. LEFT LOWER COLOSOMTY BAG NOTED, LBM ON GEOMETRY TEACHER. HEART RHYTHM IRREGUALR, AFIB PER CARDIAC MONITORING. #20G LW INFUSING WITH HEPARIN DRIP PER PROTOCOL. X1 DOSE OF AMIODRONE COMPLETED, #20G LAC FLUSHED, SITE APPEARS HEALTHY AND PATENT. MIDLINE INCISION NOTED WITH 16 DAVID, OPEN TO AIR. PULSES STRONG.CHAMPAGNE IN PLACE, 550 OF MANDO URINE NOTED, DRAINING TO GRAVITY. PT DENIES OF ANY PAINS OR DISCOMFORTS AT THIS TIME. ALL SAFTEY PRECAUTIONS ARE IN PLACE WITH CALL LIGHT IN REACH. WILL CONTINUE TO MONITOR.
--- NOTE | 2021-05-22 07:50 | NUR ---
PT RESTING IN SEMI FOWLERS POSITION. PT IS A/O X2. EASILY REORIENTED. ASSESSMENT AND VITALS COMPLETED. BP 145/61, HR 72, O2 96% ON ROOM AIR. RESPIRATIONS ARE EVEN AND UNLABORED WITH NO DISTRESS NOTED. LUNG SOUNDS ARE DIMINISHED. BOWEL SOUNDS ARE HYPOACTIVE. LEFT LOWER COLOSOMTY BAG NOTED, LBM ON WELL DRILL OPERATOR. HEART RHYTHM IRREGUALR, SR 70'S PER CARDIAC MONITORING. #20G LW INFUSING WITH HEPARIN DRIP PER PROTOCOL. X1 DOSE OF AMIODRONE COMPLETED, #20G LAC FLUSHED, SITE APPEARS HEALTHY AND PATENT. MIDLINE INCISION NOTED WITH 16 DAVID, OPEN TO AIR. PULSES STRONG.CHAMPAGNE IN PLACE, 550 OF MANDO URINE NOTED, DRAINING TO GRAVITY. PT DENIES OF ANY PAINS OR DISCOMFORTS AT THIS TIME. ALL SAFTEY PRECAUTIONS ARE IN PLACE WITH CALL LIGHT IN REACH. WILL CONTINUE TO MONITOR.
--- NOTE | 2021-05-22 08:42 | NUR ---
PTT RESULTING IN 37.0 AT THIS TIME. HEPARIN DRIP INCREASED PER PROTOCOL. DOSAGE CONFIRMED WITH ELMA MCKEON
--- NOTE | 2021-05-22 09:13 | NUR ---
PT RESTING WITH EYES CLOSED. RESPIRATIONS ARE EVEN AND UNLABORED ON ROOM AIR. AFIB 80S PER CARDIAC MONITORING. NO SIGNS OF ANY PAINS OR DISCOMFORTS AT THIS TIME. WILL CONTINUE TO MONITOR.
--- NOTE | 2021-05-22 09:20 | NUR ---
DR ESTRADA AT BEDSIDE.
--- NOTE | 2021-05-22 10:05 | NUR ---
PT RESTING WITH EYES CLOSED. RESPIRATIONS ARE EVEN AND UNLABORED ON ROOM AIR. CARDIAC MONITORING IN PLACE. PT DENIES OF ANY PAINS OR DISCOMFORTS AT THIS TIME. ALL SAFETY PRECAUTIONS ARE IN PLACE WITH CALL LIGHT IN REACH. WILL CONTINUE TO MONITOR.
--- NOTE | 2021-05-22 10:41 | NUR ---
SON AT BEDSIDE
--- NOTE | 2021-05-22 12:15 | NUR ---
PT SLEEPING IN SEMI FOWLERS POSITION. RESPIRATIONS ARE EVEN AND UNLABORED ON ROOM AIR. RAC AND RW IV SITE REMAINS IN PLACE. CARDIAC MONITORING IN PLACE, SR PER CARDIAC MONITORING. CHAMPAGNE CATH REMAINS IN PLACE, DRAINING WITH GRAVITY. NO SIGNS OF ANY PAINS OR DISCOMFORTS. ALL SAFTEY PRECAUTIONS ARE IN PLACE WITH CALL LIGHT IN REACH. WILL CONTINUE TO MONITOR.
--- NOTE | 2021-05-22 12:42 | NUR ---
AFIB 115-160'S ON CARDIAC MONITORING.VITALS OBATINED, BP 138/80,O2 96%. LOPRESSOR IV TO BE ADMINISTERED BY ELMA ORONA DR INFORMED. NO ORDERS FOR REPEAT EKG. PT REMAINS RESTING IN SEMI FOWLERS POSITION WITH EYES CLOSED. RESPIRATIONS EVEN AND UNLABORED. PT DENIES OF ANY DISCOMFORTS. WILL CONTINUE TO MONITOR
--- NOTE | 2021-05-22 13:03 | NUR ---
LOPRESSOR 5 IV ADMINISTERED BY ELMA ORONA FOR HR 110-140'S.
--- NOTE | 2021-05-22 13:34 | NUR ---
HR REMAINS IN 140'S. BP 146/80. ORDERS FROM DR ESTRADA TO ADMINISTER 1500 MEDICATIONS EARLY AND ADDITIONAL 5IV LOPRESSOR.
--- NOTE | 2021-05-22 13:45 | NUR ---
DR FUNES AT BEDSIDE DISCUSSING POC
--- NOTE | 2021-05-22 14:01 | NUR ---
ADDITIONAL 5 MG LOPRESSOR ADMINSITERED BY ELMA ORONA. BP 126/74, HR 90-140S.AFIB PER CARDIAC MONITORING. RESPIRATIONS REMAINS EVEN AND UNLABORED. PT REMAINS ASYMPTOMATIC. WILL CONTINUE TO MONITOR.
--- NOTE | 2021-05-22 14:11 | NUR ---
PT SR 60-70 ON PHARMACY GENERAL MANAGER AT THIS TIME. PT REMAINS RESTING IN SEMI FOWLERS POSITION WITH EYES CLOSED. BP 145/85, O2 98% ON ROOM AIR. NO SIGNS OF ANY PAINS OR DISCOMFORTS AT THIS TIME. ALL SAFETY PRECAUTIONS ARE IN PLACE WITH CALL LIGHT IN REACH. WILL CONTINUE TO MONITOR
--- NOTE | 2021-05-22 16:20 | NUR ---
PT RESTING IN SEMI FOWLERS POSITION. PT REMAINS A/O X2. RESPIRATIONS ARE EVEN AND UNLABORED ON ROOM AIR. #20G LW AND #20G LAC REMAINS IN PLACE. CARDIAC MONITORING IN PLACE, SR PER CARDIAC MONITORING. CHAMPAGNE CATH REMAINS IN PLACE. LLQ COLOSOMTY BAD EMPTIED, 400 OF BROWN LIQUID OUTPUT NOTED. DAVID TO MIDLINE REMAINS IN PLACE. PT DENIES OF ANY PAINS OR DISCOMFORTS AT THIS TIME. ALL SAFETY PRECAUTIONS ARE IN PLACE WITH CALL LIGHT IN REACH. WILL CONTINUE TO MONITOR.
--- NOTE | 2021-05-22 18:45 | NUR ---
CHASITY RECEIVED FROM SUZIE SALGUERO.
--- NOTE | 2021-05-22 19:53 | NUR ---
ASSESSMENT COMPLETE. PATIENT RESTING QUIETLY IN BED. VSS, NO DISTRESS NOTED. DENIES PAIN AT THIS TIME. CALL LIGHT WITHIN REACH
--- NOTE | 2021-05-22 21:39 | NUR ---
APPROXIMATELY 2100 PATIENT WENT INTO AFIB, METOPROLOL 5MG IVP GIVEN. WILL CONTINUE TO MONITOR
--- NOTE | 2021-05-22 21:42 | NUR ---
PATIENT CONVERTED BACK TO SINUS RHYTHM, HR 80.
[2021-05-23] VITALS (19 sets, daily range): BP systolic 103–151; BP diastolic 54–101
--- NOTE | 2021-05-23 00:55 | NUR ---
PATIENT RESTING QUIETLY EYES CLOSED. BED IN LOW POSITION, LOCKED. NO DISTRESS NOTED. CALL LIGHT WITHIN REACH.
--- NOTE | 2021-05-23 01:30 | NUR ---
PATIENT RHYTHM AFIB WITH RVR, RATE OF [address] ESTRADA NOTIFIED, RECEIVED ORDERS FOR LOPRESSOR 5MG X1 DOSE, IF NO IMPROVEMENT START AMIODARONE DRIP.
--- NOTE | 2021-05-23 02:57 | NUR ---
LOPRESSOR IVP GIVEN OVER AN HOUR AGO, PATIENT RHYTHM REMAINED AFIB WITH RVR. AMIODARONE DRIP MIXED AND READY TO ADMINISTER. AT THIS TIME PATIENT OUT OF RAPID VENTRICULAR RATE; RATE NOW 80. AMIODARONE DRIP HELD AT THIS TIME.
[2021-05-23 05:35] LABS: HEMATOCRIT 28.1 % (39.0-50.0); MEAN CORPUSCULAR HGB 30.1 pG CALC (26.0-32.0); RED BLOOD COUNT 2.99 mill/uL (4.70-6.10); RED CELL DISTRI WIDTH 14.2 % (11.5-15.5)
--- NOTE | 2021-05-23 06:00 | NUR ---
PATIENT IN AFIB, RATE 140. PATIENT ASYMPTOMATIC. AMIODARONE DRIP INITIATED AT 1MG/MIN (33.3ML/HR). WILL CONTINUE TO MONITOR
[2021-05-23 06:17] LABS: ANION GAP 8 (6-22 (CALC)); BUN 25 mg/dL (8-23); BUN/CREATININE RATIO 27 (12-20 (CALC)); CARBON DIOXIDE 21 mmol/l (22-30); CHLORIDE 113 mmol/l (95-108); CREATININE 0.9 mg/dL (0.7-1.3); GFR > 60 ML/MIN (>=60 (CALC)); GFR FOR AFR.AMER. > 60 ML/MIN (>=60 (CALC)); MAGNESIUM 2.1 mg/dL (1.6-2.3); POTASSIUM 3.2 mmol/l (3.5-5.1); SODIUM 139 mmol/l (137-146)
--- NOTE | 2021-05-23 07:30 | NUR ---
REPORT RECIEVED FROM OFF GOING RN. PT RESTING COMFORTABLY CHEST RISING AND FALLING.
--- NOTE | 2021-05-23 09:17 | NUR ---
DR ESTRADA IN ROUNDING ON PT
--- NOTE | 2021-05-23 10:52 | NUR ---
NEIGHBOR IN VISITING WITH PT.
--- NOTE | 2021-05-23 12:37 | NUR ---
about 25% of lunch consumed.
--- NOTE | 2021-05-23 13:33 | NUR ---
RESTING IN BED TALKING IN SLEEP. NO S/S OF DISTRESS NOTED.
--- NOTE | 2021-05-23 15:11 | NUR ---
PHYSICAL THERAPY IN WORKING WITH PT.
--- NOTE | 2021-05-23 16:19 | NUR ---
CASE MANAGEMENT IN TO SEE PT.
--- NOTE | 2021-05-23 17:00 | NUR ---
PRN IV LOPRESSOR GIVEN FOR HR IN THE 150s.
--- NOTE | 2021-05-23 17:46 | NUR ---
HR CONTINUES IN THE 140s 9 PM PO LOPRESSOR GIVEN PER DR ESTRADA.
--- NOTE | 2021-05-23 18:57 | NUR ---
phototypesetting equipment monitor shows sinus rhythm hr 80.
--- NOTE | 2021-05-23 19:15 | NUR ---
awake. confused. denies op pain. incision rotary drier, imtiaz intact. colostomy bag draining brownish red watery stool. monitoring specialist shows sinus rhythm. #20 lac & lt wrist. saline locks. po fluids taken well. godinez cath in place. urine clear yellow. fall precautions cont.
--- NOTE | 2021-05-23 22:00 | NUR ---
awake. no distress. remains confused. godinez draining well.
[2021-05-24] VITALS (18 sets, daily range): BP systolic 92–145; BP diastolic 48–78
--- NOTE | 2021-05-24 00:01 | NUR ---
naps for short intervals. remains confused. has been in & out of afib/sr.
--- NOTE | 2021-05-24 02:00 | NUR ---
awake. denies op pain. po fluids given. asked this press writer to "go in the other room & look on the table for my phone." pt thinks he's in his house. reoriented w/o success.
--- NOTE | 2021-05-24 05:00 | NUR ---
lab here. blood drawn.
[2021-05-24 05:51] LABS: HEMATOCRIT 27.4 % (39.0-50.0); HEMOGLOBIN 8.9 g/dl (14.0-18.0); MEAN CELL VOLUME 93.5 fL CALC (80.0-100.0); MEAN CORPUSCULAR HGB 30.4 pG CALC (26.0-32.0); MEAN CORPUSCULAR HGB CONC 32.5 g/dL CAL (32.0-36.0); RED BLOOD COUNT 2.93 mill/uL (4.70-6.10); RED CELL DISTRI WIDTH 14.2 % (11.5-15.5)
--- NOTE | 2021-05-24 06:00 | NUR ---
awake. remain confused. cardic monitor shows sinus rhythm pvcs hr 88.
[2021-05-24 06:08] LABS: ANION GAP 5 (6-22 (CALC)); BUN 21 mg/dL (8-23); BUN/CREATININE RATIO 21 (12-20 (CALC)); CARBON DIOXIDE 24 mmol/l (22-30); CHLORIDE 110 mmol/l (95-108); GFR > 60 ML/MIN (>=60 (CALC)); GFR FOR AFR.AMER. > 60 ML/MIN (>=60 (CALC)); POTASSIUM 3.1 mmol/l (3.5-5.1); SODIUM 136 mmol/l (137-146)
--- NOTE | 2021-05-24 07:41 | NUR ---
DR FUNES IN ROUNDING ON PT.
--- NOTE | 2021-05-24 08:06 | NUR ---
SITTING UP HAVING BREAKFAST AT THIS TIME.
--- NOTE | 2021-05-24 09:22 | NUR ---
UP TO RECLINER WITH 2 PERSON MAX ASSIST NEEDED.
--- NOTE | 2021-05-24 11:28 | NUR ---
PHYSICAL THERAPY IN WORKING WITH PT.
--- NOTE | 2021-05-24 11:33 | NUR ---
PHYSICAL THERAPY IN WORKING WITH PT.
--- NOTE | 2021-05-24 11:59 | NUR ---
S- Pt cooperative with treatment. Pt stated he wanted to go to [facility] for rehab. 0- Pt OOB in recliner with legs elevated. HR 88, BP 118/61 02 satsin 90's LE AROM with guidance performed 2 x 10 reps including heelslides, hip abd/add LAQ, marching and ankle DF/PF. He required mod/max assist to scoot forward in chair. Sit to stand with max assist and mod assist to maintain approx 45 sec, L knee buckled slightly x1 and supported by therapist. HR to 115 in standing but back to 88 with rest. Pt left in recliner legs elevated, lunch tray set up, call cabrera in reach. Time spent with pt 30 min. A- [facility] ECF. P- Will follow per POC.
--- NOTE | 2021-05-24 12:17 | NUR ---
needed assist with eating lunch. [facility] not having [facility]ures [facility].
--- NOTE | 2021-05-24 12:46 | NUR ---
ASSISTED BACK TO BED WITH 1 PERSON MAX ASSIST.
--- NOTE | 2021-05-24 13:11 | NUR ---
RETURNED FROM CT.
--- NOTE | 2021-05-24 13:29 | NUR ---
ECHO BEING DONE AT THIS TIME.
--- NOTE | 2021-05-24 19:45 | NUR ---
awake. remains confused. cardiac monotor shows sinus rhythm pvcs. #20 lt wrist & lac saline locks. po fluids taken well. godinez cath in place. urine clear yellow. abd incision quotation checker imtiaz intact. fall precautions cont.
--- NOTE | 2021-05-24 22:00 | NUR ---
eyes closed. no distress. stroke program coordinator shows sinus rhythm pvcs.
[2021-05-25] VITALS (21 sets, daily range): BP systolic 105–140; BP diastolic 43–59
--- NOTE | 2021-05-25 00:01 | NUR ---
awake but has slept for longer periods than last night. campus monitor shows sinus rhythm.
--- NOTE | 2021-05-25 02:20 | NUR ---
awake. remains confused. says he has "[place]." unable to reorient.
--- NOTE | 2021-05-25 03:55 | NUR ---
lab here. blood drawn.
--- NOTE | 2021-05-25 04:00 | NUR ---
colostomy bag off-replaced. bed bath & linen change per line out worker.
[2021-05-25 05:39] LABS: HEMATOCRIT 27.6 % (39.0-50.0); HEMOGLOBIN 9.1 g/dl (14.0-18.0); MEAN CELL VOLUME 91.1 fL CALC (80.0-100.0); RED BLOOD COUNT 3.03 mill/uL (4.70-6.10); RED CELL DISTRI WIDTH 14.2 % (11.5-15.5)
--- NOTE | 2021-05-25 06:00 | NUR ---
awake. confusion cont.
[2021-05-25 06:21] LABS: ANION GAP 7 (6-22 (CALC)); BUN 20 mg/dL (8-23); BUN/CREATININE RATIO 20 (12-20 (CALC)); CARBON DIOXIDE 25 mmol/l (22-30); CHLORIDE 108 mmol/l (95-108); GFR > 60 ML/MIN (>=60 (CALC)); GFR FOR AFR.AMER. > 60 ML/MIN (>=60 (CALC)); MAGNESIUM 1.9 mg/dL (1.6-2.3); POTASSIUM 3.2 mmol/l (3.5-5.1); SODIUM 137 mmol/l (137-146)
--- NOTE | 2021-05-25 08:48 | NUR ---
DR REZA IN ROUNDING ON PT.
--- NOTE | 2021-05-25 09:22 | NUR ---
CEMENT BREAKER YONAS FENTON IN ROUNDING ON PT.
--- NOTE | 2021-05-25 11:52 | NUR ---
Attempted treatment at approx 9 am but pt with elevated HR, will return in pm.
--- NOTE | 2021-05-25 11:56 | NUR ---
NEIGHBOR VISITING AT BEDSIDE WHILE PT HAVING LUNCH.
--- NOTE | 2021-05-25 13:40 | NUR ---
DR FUNES IN ROUNDING ON PT.
--- NOTE | 2021-05-25 14:18 | NUR ---
PHYSICAL THERAPY IN WORKING WITH PT.
--- NOTE | 2021-05-25 14:59 | NUR ---
S- Pt stated the bed felt good. Did not think he had been out of bed today. 0- Contacted nursing prior treatment. He was resting in bed. He agreed to treatment. LE A/AAROM performed to BLE x 15- 20 reps each including heelslides, hip abd/add, SAQ and ankle DF/PF. Gentle passive heelcord stretching done. Pt moved supine to sit with mod/max assist of 1. Transfer to BS chair with max assist. BP 113/51 to 140/56, HR 73 to 83, 02 sats 99 with initial desat to 80's with return to 99 with rest. Time spent with pt 35 min A- [facility] 10 ECF P- will follow.
--- NOTE | 2021-05-25 16:36 | NUR ---
SITTING RECLINER. NO C/O PAIN VOICED.
--- NOTE | 2021-05-25 18:45 | NUR ---
ARAAR RECEIVED FROM ELMA BARNEY.
--- NOTE | 2021-05-25 18:52 | NUR ---
SITTING UP IN RECLINER WATCHING TV.
--- NOTE | 2021-05-25 20:34 | NUR ---
ASSESSMENT COMPLETE. PATIENT ALERT AND ORIENTED. VSS. CHAMPAGNE TO GRAVITY. COLOSTOMY PATENT. INCISION INTACT WITH DAVID, NO S/S OF INFECTION. PATIENT DENIES PAIN AT THIS TIME. BED IN LOW POSITION LOCKED. CALL LIGHT WITHIN REACH.
--- NOTE | 2021-05-25 21:53 | NUR ---
COLOSTOMY CARE COMPLETE. WAFER AND BAG CHANGED D/T LEAKING, APPROXIMATELY 200ML BROWN STOOL NOTED. PATIENT TOLERATED WELL.
[2021-05-26] VITALS (25 sets, daily range): BP systolic 94–140; BP diastolic 37–68
--- NOTE | 2021-05-26 00:53 | NUR ---
RESTING QUIETLY EYES CLOSED. CALL LIGHT WITHIN REACH.
--- NOTE | 2021-05-26 04:43 | NUR ---
PATIENT RESTING QUIETLY EYES CLOSED. SINUS RHYTHM PER THE MONITOR, RATE OF 71. SATURATION 97% ROOM AIR. NO DISTRESS NOTED.
[2021-05-26 07:49] LABS: ANION GAP 4 (6-22 (CALC)); BUN 16 mg/dL (8-23); BUN/CREATININE RATIO 17 (12-20 (CALC)); CARBON DIOXIDE 24 mmol/l (22-30); CHLORIDE 110 mmol/l (95-108); CREATININE 0.9 mg/dL (0.7-1.3); GFR > 60 ML/MIN (>=60 (CALC)); GFR FOR AFR.AMER. > 60 ML/MIN (>=60 (CALC)); POTASSIUM 3.4 mmol/l (3.5-5.1); SODIUM 135 mmol/l (137-146)
--- NOTE | 2021-05-26 10:35 | NUR ---
PT SEEN AWAKE, ALERT, ORIENTED X 2-3. LUNGS CLEAR, RA. COLOSTOMY BAG LEAKING, REPLACED. WATERY OUTPUT. PT STATES THAT HE DOES NOT WANT TO GO TO REHAB IN [place] IF POSSIBLE, BELIEVES THAT HIS FRIEND PASTOR RECIO AND HIS CAN TAKE CARE OF HIM.
--- NOTE | 2021-05-26 12:04 | NUR ---
PT HAS BEEN ASSISTED TO CHAIR BY MANUFACTURING SCHEDULER ROSY, TOLERATED WELL. PT SEEN BY DR CORDOBA THIS MORNING, NO CHANGE IN ORDERS.
--- NOTE | 2021-05-26 13:29 | NUR ---
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 0- Pt resting in bed. He was cooperative with treatment, mild confusion noted. Pt performed AROM to BLE in supine 2 x 10 reps with assist required for guidance. Rolling side to side with bed rails and much encouragement. Static sitting balance with CGA, pt tenden to be retropulse unless reminded to flex forward. Supine to sit with mod assist of upper body and mod/max assist to scoot. Sit to stand mod/max assist x 2 reps. Transfer with mod/max assist of 1. Pt with increase RR with standing which decreases with rest. BP 107/45, 90/41, he denied dizziness/lightheadedness. HR 73-93, 02 sats upper 90's. Time spent with pt 35 min. A- pt cooperative, sit to standing improving. [facility] 10 ECF. P- Will follow.
--- NOTE | 2021-05-26 17:28 | NUR ---
PT VISITED BY DAUGHTER CATHI THIS AFTERNOON. PT CONTINUES WITH NAPPING OFTEN. COLOSTOMY BAG EMPTIED THIS AFTERNOON, SLIGHT LEAKAGE NOTED.
--- NOTE | 2021-05-26 18:30 | NUR ---
PT PROVIDED OFIRMEV FOR FEVER OF 99.6. PT FED HIS SUPPER BY KEVIN ACOSTA.
--- NOTE | 2021-05-26 18:45 | NUR ---
SBAR RECEIVED FROM ELMA HADLEY.
--- NOTE | 2021-05-26 20:39 | NUR ---
AFTER COLOSTOMY CARE AND REPOSITIONING, PATIENT NOTED TO BE IN AFIB 140-150'S.
--- NOTE | 2021-05-26 20:44 | NUR ---
RHYTHM AFIB WITH HR OF 144 ON MONITOR, AMIODARONE ADMINISTERED PERSCRIBED. ELIQUIS ALSO GIVEN. METOPROLOL HELD AT THIS TIME BP 102/39; WILL CONTINUE TO MONITOR.
--- NOTE | 2021-05-26 22:19 | NUR ---
BP PER MONITOR 94/48, MANUAL BP OBTAINED BY [employer]; FIRST READING 132/78 AND SECOND READING 130/68, HR 144, RHYTHM AFIB. METOPROLOL GIVEN AT THIS TIME.
--- NOTE | 2021-05-26 22:47 | NUR ---
PATIENT CONVERTED BACK TO NORMAL SINUS RHYTHM, RATE OF 92
[2021-05-27] VITALS (18 sets, daily range): BP systolic 103–146; BP diastolic 42–79
--- NOTE | 2021-05-27 00:49 | NUR ---
PATIENT RESTING QUIETLY. COLOSTOMY EMPTIED 100ML STOOL NOTED. HEART RHYTHM REGULAR. NO DISTRESS NOTED. PATIENT DENIES PAIN AT THIS TIME.
--- NOTE | 2021-05-27 04:35 | NUR ---
SLIVER CHOPPER AT BEDSIDE FOR A.M. LABS, PATIENT TOLERATED WELL. VSS; HR 77, BP 113/45. NO DISTRESS NOTED. PATIENT DENIES PAIN AT THIS TIME. CALL LIGHT WITHIN REACH.
[2021-05-27 05:34] LABS: HEMATOCRIT 27.8 % (39.0-50.0); HEMOGLOBIN 8.7 g/dl (14.0-18.0); MEAN CELL VOLUME 95.5 fL CALC (80.0-100.0); MEAN CORPUSCULAR HGB 29.9 pG CALC (26.0-32.0); MEAN CORPUSCULAR HGB CONC 31.3 g/dL CAL (32.0-36.0); RED BLOOD COUNT 2.91 mill/uL (4.70-6.10); RED CELL DISTRI WIDTH 14.7 % (11.5-15.5)
[2021-05-27 05:35] LABS: ALBUMIN 1.9 g/dL (3.2-5.0); ALKALINE PHOSPHATASE 59 u/l (38-126); ANION GAP 4 (6-22 (CALC)); BILIRUBIN, TOTAL 0.4 mg/dL (0.0-1.4); BUN 17 mg/dL (8-23); BUN/CREATININE RATIO 16 (12-20 (CALC)); CARBON DIOXIDE 27 mmol/l (22-30); CHLORIDE 109 mmol/l (95-108); GFR > 60 ML/MIN (>=60 (CALC)); GFR FOR AFR.AMER. > 60 ML/MIN (>=60 (CALC)); MAGNESIUM 1.9 mg/dL (1.6-2.3); POTASSIUM 3.3 mmol/l (3.5-5.1); SGOT/AST 18 u/l (19-48); SODIUM 136 mmol/l (137-146); TOTAL PROTEIN 4.6 g/dL (6.3-8.2)
--- NOTE | 2021-05-27 07:20 | NUR ---
RECEIVED REPORT FROM OFF GOING NURSE.
--- NOTE | 2021-05-27 09:30 | NUR ---
MEDS GIVEN PER EMAR TOLERATED WELL.
--- NOTE | 2021-05-27 10:40 | NUR ---
SON AT BEDSIDE VISITING.
--- NOTE | 2021-05-27 12:10 | NUR ---
RECIEVED 1ST DOSE OF GASTROGRAFFIN.
--- NOTE | 2021-05-27 13:20 | NUR ---
REPORT GIVEN TO RECIEVING MEDR NURSE.
--- NOTE | 2021-05-27 13:37 | NUR ---
PT ARRIVED VIA BED WITH ELMA BARNEY AND KEVIN JANG IN STABLE CONDITION. ORIENTATED PT TO ROOM. STATES NO PAIN AT THIS TIME. LEFT COLOSTOMY BAG IN PLACE. TELE MONITOR IN PLACE. FALL PRECAUTIONS IN PLACE. CALL LIGHT WITHIN REACH.
--- NOTE | 2021-05-27 13:47 | NUR ---
TRANSFERRED TO ROOM 271 SAFELY VIA BED.
--- NOTE | 2021-05-27 14:17 | NUR ---
ATTEMPT TO CALL CT, NO ANSWER.
--- NOTE | 2021-05-27 16:40 | NUR ---
PT SLEEPING IN BED. NO DISTRESS NOTED. FALL PRECAUTION IN PLACE. TELE MONITOR IN PLACE. CALL LIGHT WITHIN REACH. FALL PRECAUTIONS IN PLACE.
--- NOTE | 2021-05-27 17:37 | NUR ---
ED TELE MONITOR CALLED PT HR ABOVE 150 AT 1730. LOPRESSOR 5ML GIVEN VIA IV. PT ASYMPTOMATIC.
--- NOTE | 2021-05-27 17:40 | NUR ---
TELE MONITOR VERENA CALLED. PT STILL SUSTAINING ABOVE 160-170. CALLED DR. BONNER @[phone]. ORDERS TO TRANSFER TO ICU SETTING. PT REMAINS AYSYMPTOMATIC. CALL LIGHT WITHIN REACH.
--- NOTE | 2021-05-27 17:55 | NUR ---
ELMA NULL PEWTER FINISHER NOTIFIED, IN PT ROOM ASSESSING PT.
--- NOTE | 2021-05-27 17:58 | NUR ---
PT HAS NOT BEEN VOIDING ALL DAY. NOTFIED DR. COLBERT AT THIS TIME. BLADDER SCAN PERFORMED SHOWED 283CC OF FLUIDS ORDERS IF PT DOES NOT VOID IN 2H, PUT CHAMPAGNE IN.
--- NOTE | 2021-05-27 18:15 | NUR ---
PER DR. ROBINS THIS NURSE PLACED A 16F CHAMPAGNE UNDER STERIL TECHNIQUE. URINE SENT TO LAB. LEG STRAP PLACE CHAMPAGNE DOCUMENTED.
[2021-05-27 18:35] LABS: URINE BILIRUBIN - DIPSTICK NEGATIVE (NEGATIVE); URINE BLOOD DIPSTICK TRACE-INTACT (NEGATIVE); URINE COLOR YELLOW; URINE GLUCOSE - DIPSTICK NEGATIVE (NEGATIVE); URINE KETONE NEGATIVE (NEGATIVE); URINE LEUK ESTERASE NEGATIVE (Negative); URINE NITRITE - DIPSTICK NEGATIVE (Negative); URINE PH 5.5 (4.5-8.0); URINE PROTEIN - DIPSTICK TRACE mg/dL (NEG-TRACE); URINE SPECIFIC GRAVITY 1.015; URINE UROBILINOGEN - DIPSTICK 0.2 E.U./dL (0.2)
[2021-05-27 18:36] LABS: URINE CLARITY SL CLOUDY
--- NOTE | 2021-05-27 19:01 | NUR ---
CALLED ER AND INFRASTRUCTURE ENGINEER ABOUT ZOSYN MEDICATION NOT BEING IN MED ROOM. INFRASTRUCTURE ENGINEER GOING TO ICU TO RETIRIEVE MEDICATION. MEDICATION LATE DUE TO PT HR SITUATION SEE PRIOR NOTES.
--- NOTE | 2021-05-27 19:05 | NUR ---
STRINGING MACHINE TENDER AN UNABLE TO LOCATE MEDICATION, WILL GO DOWN TO ER TO RETRIEVE MEDICATION
--- NOTE | 2021-05-27 19:20 | NUR ---
PT RESTING IN BED, NO SIGNS OF DISTRESS NOTED, RESP EVEN AND UNLABORED. PT MEDICATED PER MAR, HR SUSTAINING 160S, PT VOICES NO NEEDS OR COMPLAINTS, ASSYMPTOMATIC, IV FLUSHED TO LFA, PATENT. CHAMPAGNE DRAINING TO GRAVITY. COLOSOTOMY DRAINED OF LIQUID STOOL 600CC. CALL LIGHT IN REACH,CONTINUE TO MONITOR. AWAITING TRANSFER TO ER HOLD FOR ICU.
--- NOTE | 2021-05-27 19:40 | NUR ---
PT TAKEN DOWN TO RM 13 IN ER FOR HOLD ICU IN STABLE CONDITION, REPORT GIVEN TO ANTONIO WILLS.
--- NOTE | 2021-05-27 19:45 | NUR ---
RECEIVED INTO ED 13 FROM M/S (ICU PT ON ED HOLD) PATIENT IS ALERT AND ORIENTED. SHIFT ASSESSMENT COMPLETED. VSS. RESP NON-LABORED. LEFT ABD COLOSTOMY WITH BAG INTACT, DRAINING MODERATE TO LARGE AMOUNTS OF LIQUID ORANGISH-BROWN STOOL. CHAMPAGNE IN PLACE, DRAINING CLEAR YELLOW URINE. SALINE LOCK IN PLACE IN LFA, SITE BENIGN. MONITOR SHOWS AFIB, RVR HEART RATE 150'S-170'S. WILL MONITOR CLOSELY. PATIENT HAD DOSE OF IV LOPRESSOR AT 1730 AND LOPRESSOR 50 MG PO AT 1930 WHILE ON MED/SURG. ORIENTED PATIENT TO SURROUNDINGS. CALL WESTON IN REACH.
--- NOTE | 2021-05-27 21:15 | NUR ---
SUSTAINED ELEVATED HEART RATE REPORTED TO DR CORDOBA BY Harmony LYONS/RN. NEW ORDERS RECEIVED.
--- NOTE | 2021-05-27 21:55 | NUR ---
DIGOXIN 0.25 MG IVP GIVEN ORDERED FOR ELEVATED HEART RATE. IVF'S STARTED NS WITH 40 KCL AT 100 ML HR AND MAGNESIUM 2 GM RIDER STARTED TO INFUSE OVER 2 HOURS. CONTINUES IN AFIB RVR, HR 170'S-180'S.
--- NOTE | 2021-05-27 23:55 | NUR ---
REMAINS IN AFIB, HR UP AND DOWN. PATIENT IS ASYMPTOMATIC OF RAPID HEART RATE. C/O SORE BOTTOM. TURNED AND REPOSITIONED ONTO LEFT SIDE. VSS. COLOSTOMY CONTINUES TO PUT OUT LARGE AMOUNTS OF LIQUID STOOL.
[2021-05-28] VITALS (23 sets, daily range): BP systolic 95–123; BP diastolic 42–59
--- NOTE | 2021-05-28 02:00 | NUR ---
RESTING WITHOUT COMPLAINTS. DOZES FOR SHORT INTERVALS. VSS.
--- NOTE | 2021-05-28 04:15 | NUR ---
TAKES PO FLUIDS WELL. TAKES SHORT NAPS. VSS. REMAINS AFIB, HR 70'S-80'S.
--- NOTE | 2021-05-28 06:05 | NUR ---
MONITOR SHOWS SR WITH PAC'S ALTERNATING WITH AFIB.
--- NOTE | 2021-05-28 08:52 | NUR ---
PT SEEN AWAKE, ALERT, ORIENTED X 3. LUNGS CLEAR, RA. ABDOMEN TENDER, COLOSTOMY BAG IN PLACE. KUB DONE THIS AM. PT CONTENT WITH CHOCOLATE ENSURE AND WATER TO SIP ON FREQUENTLY.
--- NOTE | 2021-05-28 09:48 | NUR ---
Dr Lee present at bedside to assess pt and discuss plan of care
[2021-05-28 10:53] LABS: HEMATOCRIT 28.6 % (39.0-50.0); HEMOGLOBIN 8.7 g/dl (14.0-18.0); IMMATURE GRANULOCYTES 0.5 % (0.0-5.0); MEAN CELL VOLUME 97.3 fL CALC (80.0-100.0); MEAN CORPUSCULAR HGB 29.6 pG CALC (26.0-32.0); MEAN CORPUSCULAR HGB CONC 30.4 g/dL CAL (32.0-36.0); NEUT# 22.88 thou/uL (1.82-7.42); RED BLOOD COUNT 2.94 mill/uL (4.70-6.10); RED CELL DISTRI WIDTH 14.7 % (11.5-15.5)
[2021-05-28 11:49] LABS: ALKALINE PHOSPHATASE 66 u/l (38-126); BUN 17 mg/dL (8-23); BUN/CREATININE RATIO 16 (12-20 (CALC)); CHLORIDE 110 mmol/l (95-108); CREATININE 1.1 mg/dL (0.7-1.3); GFR > 60 ML/MIN (>=60 (CALC)); GFR FOR AFR.AMER. > 60 ML/MIN (>=60 (CALC)); MAGNESIUM 2.3 mg/dL (1.6-2.3); SGOT/AST 18 u/l (19-48); SODIUM 135 mmol/l (137-146); TOTAL PROTEIN 4.9 g/dL (6.3-8.2)
[2021-05-28 11:57] LABS: ANION GAP 8 (6-22 (CALC)); BILIRUBIN, TOTAL 0.6 mg/dL (0.0-1.4); CARBON DIOXIDE 21 mmol/l (22-30); POTASSIUM 4.3 mmol/l (3.5-5.1)
--- NOTE | 2021-05-28 12:59 | NUR ---
PT MOVED FROM SIDE TO SIDE FOR SKIN PRESERVATION. PT DOES NOT APPEAR TO BE IN PAIN. PT ENCOURAGED TO COUGH AND DEEP BREATHE FOR LUNG HEALTH.
--- NOTE | 2021-05-28 16:15 | NUR ---
PT REMAINS AT REST IN THE BED THIS AFTERNOON, NO CHANGE IN STATUS. PT ROTATED FOR SKIN PRESERVATION.
--- NOTE | 2021-05-28 18:01 | NUR ---
PT SHAVED BY KEVIN SONG, MUCH APPRECIATED BY PT. SON KERRY AND KERRY'S HAVE VISITED. NAD.
--- NOTE | 2021-05-28 20:10 | NUR ---
awake. denies pain. security monitor shows sinus rhythm pacs pvs hr 75. #22 lfa ns w 40kcl infusing @ 100cchr. po fluids encouraged & agnes well. godinez cath in place. urine clear yellow. abd inc supervising film or videotape editor imtiaz intact. colostomy draining watery stool. fall precautions cont. turned & repositioned.
--- NOTE | 2021-05-28 22:00 | NUR ---
eyes closed. no distress. photographic platemaker shows sinus rhythm.
[2021-05-29] VITALS (21 sets, daily range): BP systolic 96–120; BP diastolic 41–56
--- NOTE | 2021-05-29 00:01 | NUR ---
eyes closed. no distress. godinez draining well.
--- NOTE | 2021-05-29 02:00 | NUR ---
resting quietly. resps even & unlabored. no distress.
--- NOTE | 2021-05-29 04:00 | NUR ---
colostomy bag leaking-changed. lab here. blood drawn.
[2021-05-29 04:57] LABS: HEMATOCRIT 26.8 % (39.0-50.0); HEMOGLOBIN 8.3 g/dl (14.0-18.0); MEAN CELL VOLUME 97.8 fL CALC (80.0-100.0); MEAN CORPUSCULAR HGB 30.3 pG CALC (26.0-32.0); RED BLOOD COUNT 2.74 mill/uL (4.70-6.10); RED CELL DISTRI WIDTH 14.8 % (11.5-15.5)
[2021-05-29 05:02] LABS: ANION GAP 7 (6-22 (CALC)); BUN 18 mg/dL (8-23); BUN/CREATININE RATIO 15 (12-20 (CALC)); CARBON DIOXIDE 21 mmol/l (22-30); CHLORIDE 113 mmol/l (95-108); CREATININE 1.2 mg/dL (0.7-1.3); GFR 57 ML/MIN (>=60 (CALC)); GFR FOR AFR.AMER. > 60 ML/MIN (>=60 (CALC)); MAGNESIUM 2.2 mg/dL (1.6-2.3); POTASSIUM 4.7 mmol/l (3.5-5.1); SODIUM 137 mmol/l (137-146)
--- NOTE | 2021-05-29 05:50 | NUR ---
no a fib this shift. potline monitor shows sinus rhythm hr 68.
--- NOTE | 2021-05-29 08:00 | NUR ---
REPORT RECEIVED FROM SUZIE CONCEPCION. PT RESTING IN BED WITH EYES CLOSED. VSS, DOES NOT APPEAR TO BE IN ANY TYPE OF DISTRESS. CALL LIGHT WITHIN REACH. WILL CONTINUE TO MONITOR.
--- NOTE | 2021-05-29 09:10 | NUR ---
kevin sales representative raw fibers here at this time to replace mattress.Pt assisted oob to the chair with maximum assistance. pt states relief to get oob and to the chair. tech in room at this time to preform adl's. am medications given. call light within reach, instructed pt to call for assistance, verbalizes understanding.
--- NOTE | 2021-05-29 10:40 | NUR ---
REPORT GIVEN TO THIS NURSE BY GAGAN WILLS.
--- NOTE | 2021-05-29 11:50 | NUR ---
PATIENT SITTING UP IN RECLINER AT THIS TIME. FAMILY AT BEDSIDE AT THIS TIME. PAYROLL ACCOUNTING CLERK READING DOCUMENTED ON PATIENT INTERVENTIONS SEE NOTES. PATIENT COMPLAINING THAT BUTTOCKS IS HURTING AT THIS TIME.
--- NOTE | 2021-05-29 12:11 | NUR ---
PATIENT PLACED ON 2L OF O2 AT THIS TIME DUE TO SPO2 READING 88. SPO2 READING 90% AT THIS TIME WILL CONTINUE TO MONITOR.
--- NOTE | 2021-05-29 12:22 | NUR ---
PATIENT RETURNED TO BED AT THIS TIME AQUACEL PLACED ON COCCYX AREA AT THIS TIME. PATIENT PROPPED UP ON RIGHT PLATE COLORER AT THIS TIME. WILL CONTINUE TO MONITOR
--- NOTE | 2021-05-29 14:14 | NUR ---
PATIENT RESTING AT THIS TIME. PATIENT BP AT THIS TIME IS 98/54 SPO2 IS 99% ON 4L OF 02 NASAL CANNULA. PATIENT DENIES ANY PAIN AND NO DIFFICULTY IN BREATHING AT THIS TIME. PATIENT CONTINUES TO COMPLAIN OF BEING COLD AND WARM BLANKET APPLIED AT THIS TIME. SIDERAILS ARE UP CALL LIGHT WITHIN REACH.
--- NOTE | 2021-05-29 16:04 | NUR ---
PATIENT RESTING IN BED AT THIS TIME DENIES ANY NEED FOR PAIN. PATIENT STATES "I'M FINALLY WARMED UP". CHAMPAGNE CATH PATENT AND DRAINING MANDO COLOR URINE AT THIS TIME. CARDIC MONITOR READING 68 BPM AT THIS TIME AND SPO2 IS CURRENTLY 98% ON 4 L. SIDERAILS ARE UP X 2 AND CALL LIGHT IS WITHIN REACH. WILL CONTINUE TO MONITOR.
--- NOTE | 2021-05-29 19:45 | NUR ---
awake. denies pain. unemployment specialist shows sinus rhythm pacs pvcs. #22 lfa ns w 40kcl infusing @ 100cchr. po fluids taken well. godinez cath in place urine clear yellow. op site rotary cutter feeder, imtiaz intact. imtiaz slightly red. colostomy bag intact & emptied. aquacel in place to coccyx. turned & repositioned. air mattress conts. requires total care for all needs.
--- NOTE | 2021-05-29 22:00 | NUR ---
eyes closed. no distress. optomechanical engineer shows sinus rhythm.
[2021-05-30] VITALS (18 sets, daily range): BP systolic 102–121; BP diastolic 44–56
--- NOTE | 2021-05-30 00:01 | NUR ---
awake freq. requests water & for staff to hold cup for him. instructed pt about need to assist with care. pt said he could live by himself. instructed pt he was NOT independent enough to live alone. instructed pt about need for rehab. pt verbalized understanding.
--- NOTE | 2021-05-30 02:00 | NUR ---
sleeps for small intervals. no distress. no apparent pain.
--- NOTE | 2021-05-30 04:30 | NUR ---
lab here. blood drawn.
[2021-05-30 05:13] LABS: HEMOGLOBIN 8.2 g/dl (14.0-18.0); MEAN CELL VOLUME 98.5 fL CALC (80.0-100.0); MEAN CORPUSCULAR HGB 29.9 pG CALC (26.0-32.0); MEAN CORPUSCULAR HGB CONC 30.4 g/dL CAL (32.0-36.0); RED BLOOD COUNT 2.74 mill/uL (4.70-6.10); RED CELL DISTRI WIDTH 14.9 % (11.5-15.5)
[2021-05-30 05:32] LABS: ANION GAP 9 (6-22 (CALC)); BUN 17 mg/dL (8-23); BUN/CREATININE RATIO 15 (12-20 (CALC)); CARBON DIOXIDE 19 mmol/l (22-30); CHLORIDE 115 mmol/l (95-108); CREATININE 1.1 mg/dL (0.7-1.3); GFR > 60 ML/MIN (>=60 (CALC)); GFR FOR AFR.AMER. > 60 ML/MIN (>=60 (CALC)); POTASSIUM 4.4 mmol/l (3.5-5.1); SODIUM 138 mmol/l (137-146)
--- NOTE | 2021-05-30 06:00 | NUR ---
awake. po fluids given as requested.
--- NOTE | 2021-05-30 07:05 | NUR ---
RECEIVED REPORT FROM OFF GOING NURSE.
--- NOTE | 2021-05-30 08:48 | NUR ---
DR REZA IN ROUNDING ON PT.
--- NOTE | 2021-05-30 10:30 | NUR ---
COLOSTOMY BAG AND WAFFER CHANGED.
--- NOTE | 2021-05-30 12:03 | NUR ---
FREQUENT TURNING AND REPOSITIONING TO MAINTAIN SKIN INTEGRITY.
--- NOTE | 2021-05-30 13:30 | NUR ---
TOLERATING IV ABT WELL.
--- NOTE | 2021-05-30 15:00 | NUR ---
RESTING IN BED. NO S/S OF DISTRESS NOTED.
--- NOTE | 2021-05-30 17:40 | NUR ---
AWAKE IN BED WATCHING GLADIS CURTIS.
--- NOTE | 2021-05-30 18:45 | NUR ---
SBAR REPORT RECEIVED FROM ELMA BARNEY.
--- NOTE | 2021-05-30 20:45 | NUR ---
ASSESSMENT COMPLETE. PATIENT ALERT AND ORIENTED TO PLACE. VSS; HR 69. NO DISTRESS NOTED. COLOSTOMY CARE COMPLETE. PATIENT REPOSITIONED IN BED. DENIES PAIN AT THIS TIME. CALL LIGHT WITHIN REACH.
--- NOTE | 2021-05-30 23:50 | NUR ---
ZOSYN IVPB ADMINISTERED PER ORDER. COLOSTOMY CARE PROVIDED AT THIS TIME 100ML BROWN STOOL EMPTIED.
[2021-05-31] VITALS (16 sets, daily range): BP systolic 93–119; BP diastolic 45–58
--- NOTE | 2021-05-31 00:20 | NUR ---
ZOSYN INFUSION COMPLETE. PATIENT RESTING QUIETLY EYES CLOSED. NO DISTRESS NOTED, CALL LIGHT WITHIN REACH.
--- NOTE | 2021-05-31 04:39 | NUR ---
PATIENT AWAKE. ECG TECHNICIAN AT BEDSIDE FOR A.M. LABS. COLOSTOMY CARE COMPLETE. NO C/O PAIN AT THIS TIME. CALL LIGHT WITHIN REACH.
[2021-05-31 05:33] LABS: HEMATOCRIT 26.9 % (39.0-50.0); HEMOGLOBIN 8.1 g/dl (14.0-18.0); MEAN CELL VOLUME 98.2 fL CALC (80.0-100.0); MEAN CORPUSCULAR HGB 29.6 pG CALC (26.0-32.0); MEAN CORPUSCULAR HGB CONC 30.1 g/dL CAL (32.0-36.0); RED BLOOD COUNT 2.74 mill/uL (4.70-6.10); RED CELL DISTRI WIDTH 14.8 % (11.5-15.5)
[2021-05-31 06:09] LABS: ANION GAP 9 (6-22 (CALC)); BUN 14 mg/dL (8-23); BUN/CREATININE RATIO 12 (12-20 (CALC)); CARBON DIOXIDE 20 mmol/l (22-30); CHLORIDE 113 mmol/l (95-108); CREATININE 1.1 mg/dL (0.7-1.3); GFR > 60 ML/MIN (>=60 (CALC)); GFR FOR AFR.AMER. > 60 ML/MIN (>=60 (CALC)); POTASSIUM 4.9 mmol/l (3.5-5.1); SODIUM 137 mmol/l (137-146)
--- NOTE | 2021-05-31 07:03 | NUR ---
RECIEVED REPORT FROM ONCOMING NURSE.
--- NOTE | 2021-05-31 08:35 | NUR ---
MEDS GIVEN PER EMAR. PT TOLERATED WELL.
--- NOTE | 2021-05-31 10:00 | NUR ---
RESTING IN BED.
--- NOTE | 2021-05-31 12:03 | NUR ---
COLOSTOMY BAG BURPED AND EMPTIED.
--- NOTE | 2021-05-31 14:30 | NUR ---
FREQUENT ROUNDS MADE TO ENSURE PT SAFETY.
--- NOTE | 2021-05-31 16:57 | NUR ---
WATCHING GLADIS CURTIS.
--- NOTE | 2021-05-31 17:20 | NUR ---
TELEPHONE REPORT GIVEN TO RECEIVING NURSE.
--- NOTE | 2021-05-31 17:30 | NUR ---
TRANSPORTED SAFELY TO ROOM 270.
--- NOTE | 2021-05-31 17:57 | NUR ---
WATCHING GLADIS CURTIS.
--- NOTE | 2021-05-31 20:00 | NUR ---
PHYSICAL ASSESMENT COMPLETE. PT CURRENTLY DENIES PAIN OR DISCOMFORT. SCHEDULED MEDICATIONS AND PRN MEDICATION ADMINISTERED, SEE E-MAR. PT HAS A COLOSTOMY; GAS RELEASED. PT HAS A CHAMPAGNE THAT IS DRAINING TO GRAVITY. PT DENIES ANY NEEDS AT THIS TIME. PLAN OF CARE REVIEWED, PT DENIES QUESTIONS, VERBALIZES UNDERSTANDING. ITEMS WITHIN REACH, BED LOCKED IN LOW POSITION W/ BEDRAILS UP X2. CALL WESTON WITHIN REACH, AGREES TO CALL PRN.
[2021-06-01] VITALS: BP 108/53
--- NOTE | 2021-06-01 00:53 | NUR ---
PT LAYING IN BED WITH EYES CLOSED, APPEARS TO BE SLEEPING, APPEARS COMFORTABLE AND IN NO DISTRESS. RESPIRATIONS REGULAR AND UNLABORED. CHAMPAGNE CATHETER RUNNING TO GRAVITY. ITEMS REMAIN WITHIN REACH, CALL WESTON REMAINS WITHIN REACH. BED REMAINS LOCKED AND IN LOW POSITION WITH BEDRAILS UP X2. WILL CONTINUE TO MONITOR.
[2021-06-01 03:34] VITALS: BP 107/52
--- NOTE | 2021-06-01 04:25 | NUR ---
PT RESTING IN BED, NO SIGNS OF DISTRESS NOTED, RESP EVEN AND UNLABORED. PT VOICES NO NEEDS OR COMPLAINTS AT THIS TIME. CALL LIGHT IN REACH, CONTINUE TO MONITOR.
[2021-06-01 05:07] LABS: HEMATOCRIT 26.2 % (39.0-50.0); MEAN CORPUSCULAR HGB 29.6 pG CALC (26.0-32.0); MEAN CORPUSCULAR HGB CONC 30.5 g/dL CAL (32.0-36.0); RED BLOOD COUNT 2.7 mill/uL (4.70-6.10); RED CELL DISTRI WIDTH 14.6 % (11.5-15.5)
[2021-06-01 05:22] LABS: ANION GAP 7 (6-22 (CALC)); BUN 13 mg/dL (8-23); BUN/CREATININE RATIO 12 (12-20 (CALC)); CARBON DIOXIDE 20 mmol/l (22-30); CHLORIDE 113 mmol/l (95-108); CREATININE 1.1 mg/dL (0.7-1.3); GFR > 60 ML/MIN (>=60 (CALC)); GFR FOR AFR.AMER. > 60 ML/MIN (>=60 (CALC)); SODIUM 136 mmol/l (137-146)
[2021-06-01 05:36] LABS: POTASSIUM 3.9 mmol/l (3.5-5.1)
--- NOTE | 2021-06-01 08:00 | NUR ---
SHIFT CHANGE REPORT, PT SLEEPING BUT AROUSES TO VERBAL STIMULI, NO C/O DISCOMFORT, TELE MONITOR IN PLACE COLOSTOMY IN PLACE TO ELFT ABD WITH BROWN FECES, CALL WESTON IN REACH AND BED LOCKED IN LOWEST POSITION.
[2021-06-01 08:33] VITALS: BP 95/53
[2021-06-01 10:45] VITALS: BP 97/57
--- NOTE | 2021-06-01 12:00 | NUR ---
ASSISTED OUT OF BED BY 2 STAFF MEMBERS AND SITTING UP IN RECLINER, NO NEW COMPLAINS, CALL WESTON IN REACH.
[2021-06-01 15:34] VITALS: BP 98/50
--- NOTE | 2021-06-01 16:00 | NUR ---
TOLERATING SITTING UP IN RECLINER WELL, ALL NEEDS MET.
--- NOTE | 2021-06-01 18:00 | NUR ---
ASSISTED BACK TO BED WITH MAX ASSIST OF 2, SETTLED, COLOSTOMY EMPTIED,CALL WESTON IN REACH.
[2021-06-01 19:00] VITALS: BP 99/49
--- NOTE | 2021-06-01 20:17 | NUR ---
PHYSICAL ASSESMENT COMPLETE. PT CURRENTLY DENIES PAIN OR DISCOMFORT. SCHEDULED MEDICATIONS AND PRN MEDICATION ADMINISTERED, SEE E-MAR. COLOSTOMY BAG EMPTIED OF BROWN LIQUID STOOL. CHAMPAGNE CATHETER DRAINING TO GRAVITY. PT DENIES ANY NEEDS AT THIS TIME. PLAN OF CARE REVIEWED, PT DENIES QUESTIONS, VERBALIZES UNDERSTANDING. ITEMS WITHIN REACH, BED LOCKED IN LOW POSITION W/ BEDRAILS UP X2. CALL WESTON WITHIN REACH, AGREES TO CALL PRN.
--- NOTE | 2021-06-01 23:50 | NUR ---
PT LAYING IN BED WITH EYES CLOSED, APPEARS TO BE SLEEPING, APPEARS COMFORTABLE AND IN NO DISTRESS. RESPIRATIONS REGULAR AND UNLABORED. ITEMS REMAIN WITHIN REACH, CALL WESTON REMAINS WITHIN REACH. BED REMAINS LOCKED AND IN LOW POSITION WITH BEDRAILS UP X2. WILL CONTINUE TO MONITOR.
[2021-06-02] VITALS: BP 97/54
[2021-06-02 04:00] VITALS: BP 99/51
[2021-06-02 05:52] LABS: HEMOGLOBIN 8.1 g/dl (14.0-18.0); MEAN CELL VOLUME 95.9 fL CALC (80.0-100.0); MEAN CORPUSCULAR HGB 29.9 pG CALC (26.0-32.0); MEAN CORPUSCULAR HGB CONC 31.2 g/dL CAL (32.0-36.0); RED BLOOD COUNT 2.71 mill/uL (4.70-6.10); RED CELL DISTRI WIDTH 14.6 % (11.5-15.5)
[2021-06-02 06:03] LABS: ANION GAP 6 (6-22 (CALC)); BUN 11 mg/dL (8-23); BUN/CREATININE RATIO 11 (12-20 (CALC)); CARBON DIOXIDE 21 mmol/l (22-30); CHLORIDE 113 mmol/l (95-108); GFR > 60 ML/MIN (>=60 (CALC)); GFR FOR AFR.AMER. > 60 ML/MIN (>=60 (CALC)); MAGNESIUM 1.9 mg/dL (1.6-2.3); POTASSIUM 3.8 mmol/l (3.5-5.1); SODIUM 137 mmol/l (137-146)
[2021-06-02 07:20] VITALS: BP 102/54
--- NOTE | 2021-06-02 07:20 | NUR ---
PATIENT RESTING IN BED AT THIS TIME. PATINET ALERT TO NAME AND PALACE SIDERAILS ARE UP CALL LIGHT WITHIN REACH. LUNG MONROE ARE CLEAR ANTERIOR AND COARSE IN LOWER [place]ROE SPO2 IS 98% ON ROOM AIR. CHAMPAGNE PATENT AND DRAINING MANDO URINE AT THIS TIME. PATIENT CINTIA ANY PAIN AT THIS TIME. COLOSTOMY IN PLACE AND TELE MONITOR ON AND BEING MONITORED BY ED. WILL CONTINUE TO MONITOR
--- NOTE | 2021-06-02 10:14 | NUR ---
PATIENT CHAMPAGNE REMOVED AT THIS TIME. PATIENT RECEIVED INSTRUCTIONS ON USING A URINAL AND TO CALL TO NURSE WHEN HE HAS HIS FIRST VOID. PATIENT VERBALIZES UNDERSTANDING OF THESE INSTRUSTIONS.
--- NOTE | 2021-06-02 11:01 | NUR ---
S- Pt voiced no complaints, requesting cold drink (provide by [employer]) 0- Pt resting in bed supine and slumped over towards L, [employer] in to empty colonscopy bag. Rolling side to side with min assist without use of bed rail. Supine to sit min/mod assist with bed rail. He was able to stand from bed with CGA/miin assist (with [employer] and therapist). Standing x approx 1 min with CGA then took 4-6 small steps over to bedside chair. Pt stood a second time with min assist and was able to walk 4 steps forward and back. Sitting LE ex were performed 2x 10 reps. BP 96/51 to 93/53 02 sats 99 to 100%, HR 86 to 97. Pt left in chair with tray in front of him, phone and call cabrera in reach. Time spent with pt 45 min. A - [facility] 11 ECF. P- will follow.
[2021-06-02 11:09] VITALS: BP 95/53
--- NOTE | 2021-06-02 11:48 | NUR ---
PATIENT SITTING UP IN CHAIR AT THIS TIME. URNIAL PROPT INBETWEEN LEGS NO URINE NOTED AT THIS TIME PATIENT DENIES AND ABDOMNAL PAIN OR THE NEED TO VOID AT THIS TIME. ABDOMINAL SURGICAL SITE APPROXIMATED AND WITHOUT ANY SIGNS OR SYMPTOMS OF SITE INFECTION AT THIS TIME. WILL CONTINUE TO MONITOR.
--- NOTE | 2021-06-02 14:20 | NUR ---
PATIENT HAS NOT VOIDED AT THIS TIME SINCE 1014 AM WHEN CHAMPAGNE CATH REMOVED. BLADDER SCANNED AND SHOWS 000ML AT THIS TIME. PATIENT STATES HE DOES NOT FEEL THE NEED TO VOID AT THIS TIME. WHEN BLADDER AREA IS PALPATED PATIENT STATES THERE IS NO DISCOMFORT. ALL INFORMATION GIVEN TO KOJO JACOBS AT THIS TIME AND ADVISED TO RESCAN AROUND 1800.
--- NOTE | 2021-06-02 15:15 | NUR ---
PATIENT WAS ABLE TO VOID 50ML AT THIS TIME OF MANDO URINE. NO PAIN AT THIS TIME WILL CONTINUE TO MONITOR.
[2021-06-02 15:30] VITALS: BP 99/47
--- NOTE | 2021-06-02 16:09 | NUR ---
PATIENT RESTING IN BED AT THIS TIME. PATIENT DENIES ANY PAIN. PATIENT HAS BEAR-HUGGER ON TO KEEP PATIENT WARM. SIDERAILS ARE UP CALL LIGHT WITHIN REACH TELE MONITOR ON AND BEING MONITORED BY ED.
[2021-06-02 19:14] VITALS: BP 114/57
--- NOTE | 2021-06-02 19:30 | NUR ---
PT RESTING IN BED, NO SIGNS OF DISTRESS NOTED, RESP EVEN AND UNLABORED. PT ALERT AND ORIENTED X3, NO EDEMA. PT HAS A COLOSTOMY TO LLQ, EMPTIED OF 200CC OF LOOSE YELLOW STOOL. DISCUSSED POC, PT VOICES NO NEEDS OR COMPLAINTS AT THIS TIME, ASSESSMENT COMPLETED, CALL LIGHT IN REACH,CONTINUE TO MONITOR.
--- NOTE | 2021-06-02 21:47 | NUR ---
PT RESTING IN BED, NO SIGNS OF DISTRESS NOTED, RESP EVEN AND UNLABORED. PT MEDICATED PER MAR, CALL LIGHT IN REACH, CONTINUE TO MONITOR.
[2021-06-03] VITALS: BP 111/53
--- NOTE | 2021-06-03 01:09 | NUR ---
PT RESTING IN BED WITH EYES CLOSED, NO SIGNS OF DISTRESS NOTED, RESP EVEN AND UNLABORED. CALL LIGHT IN REACH,CONTINUE TO MONITOR.
[2021-06-03 03:57] VITALS: BP 106/51
--- NOTE | 2021-06-03 05:36 | NUR ---
PT MEDICATED PER MAR, VOICES NO NEEDS OR COMPLAINTS AT THIS TIME, CALL LIGHT IN REACH,CONTINUE TO MONITOR.
[2021-06-03 07:30] VITALS: BP 110/51
--- NOTE | 2021-06-03 08:00 | NUR ---
PATIENT RESTING BED AT THIS TIME. SIDERAILS ARE UP X 2 CALL LIGHT WIIN REACH. SPORTS COMMENTATOR DONE PATIENT URINATING 100ML OF MANDO URINE AT THIS TIME COLOSTOMY BAG INPLACE AND HAS BROW STOOL SMALL AMOUNT INSIDE. PATIENT DEINES ANY PAIN CURRENTLY. TELE MONITOR ON WILL CONTINUE TO MONITOR.
--- NOTE | 2021-06-03 10:54 | NUR ---
S- pt stated he was going home. Requested ice cream (nursing aware) 0- pt resting in bed with breakfast tray in front of him, pt finished. AROM ex performed to BLEs in supine including heelsides, hip abd/add, SAQ 1 x 10reps. Gentle heelcord and hamstrings stretch done 3 x 15 sec. He was able to roll R and L without use of bed rails with SBA. Supine to sit with very min assist of upper body. He scooted to move feet to floor with much encouragement and SBA. Sit to stand from bed min assist, min/mod from bedside chair. Gait 2x 6' with RW and mod assist x1. Pt required verbal cues for proper gait pattern and walker positioning. BP 100/48 to 104/55, 02 sats 99-97% on room air. HR in 70's. Time spent with pt 44 min 0- Pt progressing with mobility, Standing balance decreased. [facility] P- Will follow per POC.
--- NOTE | 2021-06-03 11:21 | NUR ---
PATIENT SITTING UP IN CHAIR AT THIS TIME. PATIENT DENIES ANY PAIN AT THIS TIME. CALL LIGHT IS WITHIN REACH. TELE MONITOR REMAINS IN PLACE WILL CONTINUE TO MONITOR.
[2021-06-03 11:42] VITALS: BP 80/45
[2021-06-03] MEDS ORDERED: ELIQUIS2.5 MG PO (11:52)
[2021-06-03] MEDS ORDERED: CORDARONE/200 MG/TAB PO (11:59)
--- NOTE | 2021-06-03 12:49 | NUR ---
PATIENT D/C AT THIS TIME. PATIENT D/C INSTRUCTIONS GONE OVER WITH PATIENT AT THIS TIME. IV REMOVED AND TELE REMOVED AND ED CALLED.
--- NOTE | 2021-06-03 13:05 | NUR ---
Discharge instructions given. Patient verbalizes understanding of same. Discharged in stable condition via Wheelchair to Home with family. All belongings sent with pt. DAUGHTER IN LAW [place] WAS GIVEN ALL D/C INSTRUSTIONS BY [facility]OM[facility] WILLS AT THIS TIME. PATIENT REMINDED THAT [facility].
== END 2021-06-03 13:20 | disposition home health service (06) | DRG 330 ==
LOC: ED 09:38 → ED-I 13:29 → ED 13:42 → MS2 13:43 → ICU 23:34 → MS2 05-27 13:48 → ED-I 05-27 19:40 → ICU 05-28 07:31 → MS2 05-31 17:20
PROVIDERS: Emergency Medicine; Nurse Practitioner; ADMIT Hospitalist; ATTEND Internal Medicine
PROC: 0DB80ZZ Excision of Small Intestine, Open Approach (ICD-10-PCS; principal; 2021-05-19)
PROC: 0DQV0ZZ Repair Mesentery, Open Approach (ICD-10-PCS; 2021-05-19)
PROC: 0T9B70Z Drainage of Bladder with Drainage Device, Via Natural or Artificial Opening (ICD-10-PCS; 2021-05-19)
DX: K46.1 Unspecified abdominal hernia with gangrene (principal); N17.9 Acute kidney failure, unspecified; I10 Essential (primary) hypertension; I25.10 Atherosclerotic heart disease of native coronary artery without angina pectoris; E78.5 Hyperlipidemia, unspecified; I48.0 Paroxysmal atrial fibrillation; R33.9 Retention of urine, unspecified; E83.42 Hypomagnesemia; E87.6 Hypokalemia; D64.9 Anemia, unspecified; L89.301 Pressure ulcer of unspecified buttock, stage 1; I25.2 Old myocardial infarction; S32.019D Unspecified fracture of first lumbar vertebra, subsequent encounter for fracture with routine healing; W17.89XD Other fall from one level to another, subsequent encounter; Z95.5 Presence of coronary angioplasty implant and graft; Z93.3 Colostomy status; Z87.891 Personal history of nicotine dependence; Z90.49 Acquired absence of other specified parts of digestive tract; Z87.820 Personal history of traumatic brain injury; Z86.73 Personal history of transient ischemic attack (TIA), and cerebral infarction without residual deficits; Z85.048 Personal history of other malignant neoplasm of rectum, rectosigmoid junction, and anus; Z20.822 Contact with and (suspected) exposure to COVID-19
CPT/HCPCS: J0131; J0282; J1160; J1644; J1650; J3475; Q9967

== ENCOUNTER 2021-07-01 06:41 | Observation (INO) | payer OTHER, MEDICARE ==
[~2021-07-01] VITALS: Ht 177.8 cm; Wt 61.0 kg
[~2021-07-01 06:41] MED LIST changes: +CORDARONE/200 MG/TAB PO; +ELIQUIS2.5 MG PO
[2021-07-01 07:01] LABS: HEMOGLOBIN 9.7 g/dl (14.0-18.0); IMMATURE GRANULOCYTES 0.8 % (0.0-5.0); MEAN CELL VOLUME 97.3 fL CALC (80.0-100.0); MEAN CORPUSCULAR HGB CONC 29.8 g/dL CAL (32.0-36.0); NEUT# 5.64 thou/uL (1.82-7.42); RED BLOOD COUNT 3.35 mill/uL (4.70-6.10); RED CELL DISTRI WIDTH 15.9 % (11.5-15.5)
[2021-07-01 07:02] LABS: HEMATOCRIT 32.6 % (39.0-50.0)
[2021-07-01 07:16] LABS: PROTHROMBIN TIME 10.5 SECONDS (9.0-12.5)
[2021-07-01 07:18] LABS: ALBUMIN 2.5 g/dL (3.2-5.0); ALKALINE PHOSPHATASE 106 u/l (38-126); ANION GAP 10 (6-22 (CALC)); BILIRUBIN, TOTAL 0.6 mg/dL (0.0-1.4); BUN 12 mg/dL (8-23); BUN/CREATININE RATIO 12 (12-20 (CALC)); CARBON DIOXIDE 24 mmol/l (22-30); CHLORIDE 108 mmol/l (95-108); GFR > 60 ML/MIN (>=60 (CALC)); GFR FOR AFR.AMER. > 60 ML/MIN (>=60 (CALC)); SGOT/AST 26 u/l (19-48); SODIUM 137 mmol/l (137-146); TOTAL PROTEIN 6.2 g/dL (6.3-8.2)
[2021-07-01 07:30] LABS: MYOGLOBIN 104 ng/mL (0 - 121)
--- NOTE | 2021-07-01 07:52 | NUR ---
PATIENT IN ROOM, ALERT AND ORIENTED, COMFORTABLE. WARM BLANKETS APPLIED. VSS.
--- NOTE | 2021-07-01 08:37 | NUR ---
Reassessment of patient completed. No distress noted.
[2021-07-01 08:56] LABS: URINE BILIRUBIN - DIPSTICK NEGATIVE (NEGATIVE); URINE BLOOD DIPSTICK NEGATIVE (NEGATIVE); URINE COLOR YELLOW; URINE GLUCOSE - DIPSTICK NEGATIVE (NEGATIVE); URINE KETONE TRACE mg/dL (NEGATIVE); URINE LEUK ESTERASE NEGATIVE (NEGATIVE); URINE PH 5.5 (4.5-8.0); URINE PROTEIN - DIPSTICK NEGATIVE (NEG-TRACE); URINE SPECIFIC GRAVITY 1.025; URINE UROBILINOGEN - DIPSTICK 0.2 E.U./dL (0.2)
[2021-07-01 09:03] LABS: URINE NITRITE - DIPSTICK NEGATIVE (Negative)
--- NOTE | 2021-07-01 09:15 | NUR ---
Reassessment of patient completed. No distress noted.
--- NOTE | 2021-07-01 10:15 | NUR ---
Reassessment of patient completed. No distress noted.
--- NOTE | 2021-07-01 11:10 | NUR ---
REPORT RECIEVED FROM ELMA GREENWOOD.
--- NOTE | 2021-07-01 11:22 | NUR ---
PT ARRIVED VIA STRETCHER WITH RN FROM ER. PT REPORTS NO PAIN JUST WEAKNESS. ORIENTATED PT TO ROOM. 20G LAC, SALINE LOCKED. FLUSHED WITH NO RESISTANCE. TELE MONITOR IN PLACE. FALL/SAFTEY PRECAUTIONS IN PLACE. CALL LIGHT WITHIN REACH.
--- NOTE | 2021-07-01 11:25 | NUR ---
Reassessment of patient completed. No distress noted. REPORT CALLED TO [facility]. PATIENT TRANSPORTED ON TELE TO ROOM 280. ALERT AND ORIENTED. NO ACUTE DISTRESS.
--- NOTE | 2021-07-01 12:00 | NUR ---
PT EATING LUNCH AT THIS TIME. PT A&O X3. CALL LIGHT IS WITHIN. BED ALARM ACTIVATED. TELE MONITOR WITHIN REACH.
[2021-07-01 12:22] VITALS: BP 130/52
[2021-07-01 18:58] VITALS: BP 126/58
--- NOTE | 2021-07-01 19:30 | NUR ---
PATIENT RESTING IN BED AT THIS TIME-AWAKE ALERT AND ORIENTED TO SELF AND PLACE. STATES THAT HE HAD A FALL AT HOME BUT DOESN'T REMEMBER WHAT HAPPENED OR HOW HE GOT HERE. TELE MONITOR IN PLACE-LAST READING WAS SR-70'S. IVF NS PATENT AND INFUSING VIA LAC SITE AT 100CC/HR. SITE IS HEALTHY. COLOSTOMY INTACT TO LEFT ABD. EMPTIED FOR SMALL AMT OF GREENISH BROWN STOOL. ABD IS SOFT. LUNGS ARE CLEAR. NO PERIPHERAL EDEMA NOTED. BED ALARM IN PLACE FOR PATIENT SAFETY. SAFETY PRECAUTIONS REINFORCED. CALL LIGHT IN REACH. WILL CONT TO MONITOR
--- NOTE | 2021-07-01 22:06 | NUR ---
PATIENT IS ATTEMPTING TO GET OOB-CONFUSED TO PLACE AND TIME. ATTEMPT TO REORIENT PATIENT WITH SOME SUCCESS, ASSISTED BACK INTO BED. TELE REMAINS IN PLACE. IVF PATENT AT 100CC/HR VIA LAC SITE. COLOSTOMY APPLKIANCE IN PLACE. BED ALARM IN PLACE FOR PATIENT SAFETY. CALL LIGHT IN REACH. WILL CONT TO MONITOR.
--- NOTE | 2021-07-01 23:45 | NUR ---
PATIENT RESTING IN BED AT THIS TIME WITH EYES CLOSED. RESPS ARE EVEN AND UNLABORED AT THIS TIME. IVF PATENT AND INFUSING VIA LAC SITE AT 100CC/HR. TELE MONITOR IN PLACE. BED ALARM IN PLACE FOR PATIENT SAFETY.CALL LIGHT IN REACH. WILL CONT TO MONITOR.
[2021-07-02] VITALS: BP 111/59
--- NOTE | 2021-07-02 03:34 | NUR ---
PATIENT AWAKE AND ALERT C/O BEING HUNGRY-PROVIDED PATIENT WITH HEALTHY [employer]ICE TURKEY DINNER AND PATIENT ATE 100% OF THE MEAL. TELE MONITOR REMAINS IN PLACE. IVF NS PATENT AND INFUSING VIA LAC SITE. SITE REMAINS HEALTHY. COLOSTOMY APPLIANCE REMAINS INTACT. PATIENT IS PLEASANT-ORIENTED TO PERSON AND PLACE AT THIS TIME. BED ALARM IN PLACE FOR PATIENT SAFETY. SAFETY PRECAUTIONS REINFORCED. CALL LIGHT IN REACH. WILL CONT TO MONITOR.
[2021-07-02 04:00] VITALS: BP 102/58
[2021-07-02 05:54] LABS: HEMATOCRIT 26.9 % (39.0-50.0); HEMOGLOBIN 8.1 g/dl (14.0-18.0); MEAN CELL VOLUME 97.1 fL CALC (80.0-100.0); MEAN CORPUSCULAR HGB 29.2 pG CALC (26.0-32.0); MEAN CORPUSCULAR HGB CONC 30.1 g/dL CAL (32.0-36.0); RED BLOOD COUNT 2.77 mill/uL (4.70-6.10)
[2021-07-02 06:03] LABS: ANION GAP 6 (6-22 (CALC)); BUN 11 mg/dL (8-23); BUN/CREATININE RATIO 14 (12-20 (CALC)); CARBON DIOXIDE 26 mmol/l (22-30); CHLORIDE 108 mmol/l (95-108); CREATININE 0.8 mg/dL (0.7-1.3); GFR > 60 ML/MIN (>=60 (CALC)); GFR FOR AFR.AMER. > 60 ML/MIN (>=60 (CALC)); MAGNESIUM 1.6 mg/dL (1.6-2.3); POTASSIUM 3.5 mmol/l (3.5-5.1); SODIUM 136 mmol/l (137-146)
[2021-07-02 07:00] VITALS: BP 110/51
[2021-07-02 11:09] VITALS: BP 100/46
--- NOTE | 2021-07-02 13:29 | NUR ---
Subjective: Patient states that R LE feels weaker than L LE, struggled with bed mobility and bed to reclinig chair transfers. Objective: Patient carried out the following activities: Patient did B LE seated exercise protocol with YTB as resistance: seated hip flexion, hip abduction, hamstring curls, ankle pumps, seated knee extension, seated hip adduction, and gluteal squeezes for 2 x 10 reps with constant verbal cuing to maintain proper body mechanics. Patient also did bed mobility, sit to stand transfers, and short distance gait - taking 3 to 4 steps between bed to recliner and back with min A x 1 with patient exhibiting lateral swaying. Assessment: Patient continues to struggle with practicing proper body mechanics with bed mobility, transfers, and gait ADLs due to muscle weakness on B LE. Patient to consistently practice proper body mechanics and postural mechanics to help decrease trick movements and fall risks. Plan: Patient to continue with PT intervention, concnetrate on practicing proper body mechanics combined with exercise protocol and dynamic balance to help improve to highest level of functional independence. Am PAc score at this time is at 11 points, discharge recommendation will be extended care facility placement.
[2021-07-02 15:00] VITALS: BP 111/47
[2021-07-02 19:00] VITALS: BP 105/71
--- NOTE | 2021-07-02 21:05 | NUR ---
PT ASSEMENT AND MEDICATION ADMINISTRATION COMPLETED AT THIS TIME.
[2021-07-03] VITALS: BP 115/65
[2021-07-03 04:00] VITALS: BP 116/62
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
--- NOTE | 2021-07-03 08:00 | NUR ---
ASSESSMENT AND VITALS ALLOWED AT THIS TIME. PT VERY SHAKEY THIS MORNING. UNABLE TO CUT FOOD. HELPED CUT UP FOOD AND PT ABLE TO FEED SELF. PT IS ALERT TO PERSON PLACE AND TIME BUT NEEDS TO BE REORIENTATED. STATES NEEDS TO SEE BOOKKEEPING MACHINE OPERATOR AND MERCHANDISE MANAGER BECAUSE A OH IS LOOKIGN FOR HIM. LUNG SOUNDS ARE DIMINISHED UPPER/LOWER LOBES ANTERIOR AND POSTERIOR. HEART SOUNDS ARE REGULAR. TELE MONITOR IN PLACE. CONTINOUS MONITORING BY ED. BOWEL SOUNDS ACTIVE X4. FALL/SAFTEY PRECAUTIONS IN PLACE. CALL LIGHT WITHIN REACH
[2021-07-03 10:48] VITALS: BP 99/40
[2021-07-03 14:20] VITALS: BP 106/57
[2021-07-03 19:30] VITALS: BP 127/62
--- NOTE | 2021-07-03 19:32 | NUR ---
REPORT RECEIVED FROM Delores BROWNE RN.
--- NOTE | 2021-07-03 21:25 | NUR ---
ASSEMENT AND MEDICATIONS GIVEN AT THIS TIME.
--- NOTE | 2021-07-03 23:35 | NUR ---
PATIENT MEDICATED WITH NICOTINE PATCH AND SEROQUEL.
--- NOTE | 2021-07-04 04:39 | NUR ---
PATIENT SLEEPING SOUNDLY, MUMBLING IN HIS SLEEP.
--- NOTE | 2021-07-04 04:40 | NUR ---
LAB IN TO DRAW LABS AT THIS TIME
[2021-07-04 05:45] LABS: HEMATOCRIT 25.8 % (39.0-50.0); HEMOGLOBIN 7.9 g/dl (14.0-18.0); MEAN CELL VOLUME 96.6 fL CALC (80.0-100.0); MEAN CORPUSCULAR HGB 29.6 pG CALC (26.0-32.0); MEAN CORPUSCULAR HGB CONC 30.6 g/dL CAL (32.0-36.0); RED BLOOD COUNT 2.67 mill/uL (4.70-6.10); RED CELL DISTRI WIDTH 16.4 % (11.5-15.5)
[2021-07-04 05:58] LABS: ANION GAP 7 (6-22 (CALC)); BUN 12 mg/dL (8-23); BUN/CREATININE RATIO 14 (12-20 (CALC)); CARBON DIOXIDE 26 mmol/l (22-30); CHLORIDE 108 mmol/l (95-108); CREATININE 0.8 mg/dL (0.7-1.3); GFR > 60 ML/MIN (>=60 (CALC)); GFR FOR AFR.AMER. > 60 ML/MIN (>=60 (CALC)); MAGNESIUM 1.6 mg/dL (1.6-2.3); POTASSIUM 3.1 mmol/l (3.5-5.1); SODIUM 137 mmol/l (137-146)
--- NOTE | 2021-07-04 07:05 | NUR ---
REPORT RECEIVED FROM ELMA CABRAL
[2021-07-04 09:00] VITALS: BP 98/54
--- NOTE | 2021-07-04 09:00 | NUR ---
PT OOB RESTING IN RECLINER,A&O TO PERSON AND PLACE;FORGETFULNESS NOTED;VS OBTAINED AND ASSESSMENT COMPLETED;PT DENIES ANY CURRENT PAIN OR DISCOMFORTS,PAIN SCALE AND REPORTING EDUCATED;RESPIRATIONS EVEN AND UNLABORED ON RA,CLEAR/DIMINISHED LUNG SOUNDS NOTED;ABDOMEN SOFT ON PALPATION AND ACTIVE IN ALL 4 QUADRANTS;WEAK PEDAL PULSES;SKIN INTACT;TELE MONITORING IN PLACE;#20G TO LAC FLUSHED AND PATENT,SITE APPEARS HEALTHY;NICOTINE PATCH APPLIED TO LEFT ARM;PT DENIES ANY ADDITIONAL NEEDS AND IS ENCOURAGED TO CALL FOR ASSISTANCE IF NEEDED;FALL PRECAUTIONS IN PLACE WITH BED ALARM ON AND CALL LIGHT IN REACH;WILL CONTINUE TO MONITOR
[2021-07-04 10:54] VITALS: BP 144/65
--- NOTE | 2021-07-04 11:12 | NUR ---
AND COCO,ANRP AT BEDSIDE DISCUSSING POC.
--- NOTE | 2021-07-04 12:00 | NUR ---
PT OOB RESTING IN RECLINER,ALERT TO SELF ONLY AT THIS TIME;RESPIRATIONS EVEN AND UNLABORED ON RA;PT DENIES ANY CURRENT PAIN OR DISCOMFORTS;TELE MONITORING IN PLACE;IV SITE PATENT;FALL PRECAUTIONS IN PLACE WITH BED ALARM ON FOR SAFETY;CALL LIGHT IN REACH;WILL CONTINUE TO MONITOR
[2021-07-04] MEDS ORDERED: SEROQUEL25 MG PO (13:36)
--- NOTE | 2021-07-04 13:40 | NUR ---
PT UNABLE TO SWALLOW SCHEDULED ORAL COCO GARCIA ANRP NOTIFIED AND NEW ORDER TO BE PLACED PER ANRP.
--- NOTE | 2021-07-04 14:30 | NUR ---
ALL DISCHARGE INSTRUCTIONS PROVIDED AT THIS TIME AND TO BE CALLED TO [place] ([facility]), PT TO F/U WITH PCP, CONTINUE HOME MEDICATIONS, SEROQUEL TO BE ADDED TO NIGHTLY ROUTINE,KEEP A LOG OF BP/HR RATE TWICE A DAY AND PROVIDED LOG TO PCP, HOME HEALTH AND PT TO FOLLOW;IV SITE REMOVED WITH CATHETER INTACT AND TELE MONITORING D/C;PT DENIES ANY ADDITIONAL NEEDS;WHEELCHAIR TO BE PROVIDED FOR D/C HOME;[facility] TO TRANSPORT PT HOME;CALL LIGHT AND BED ALARM IN PLACE;WILL CONTINUE TO MONITOR
--- NOTE | 2021-07-04 14:35 | NUR ---
CALL PLACED AND VOICEMAIL LEFT FOR PT SON DENNY FOR TRANSPORTATION HOME.
--- NOTE | 2021-07-04 15:02 | NUR ---
SECOND CALL PLACED TO MARLA BALDWIN SON AND VOICEMAIL LEFT FOR TRANSPORTATION;AWAITING RETURN CALL;WILL CONTINUE TO MONITOR
--- NOTE | 2021-07-04 15:11 | NUR ---
THIRD CALL AND VOICEMAIL LEFT FOR PT SON [place] FOR TRANSPORTATION HOME.
--- NOTE | 2021-07-04 16:00 | NUR ---
PT RETSING IN RECLINER;RESPIRATIONS EVEN AND UNLABORED ON RA;PT DENIES ANY CURRENT PAIN OR DISCOMFORTS;STILL AWAITING PT SON TO ARRIVE FOR D/C HOME;PT DENIES ANY CURRENT NEEDS AND IS ENCOURAGED TO CALL FOR ASSISTANCE IF NEEDED;CALL LIGHT AND BED ALARM IN PLACE;WILL CONTINUE TO MONITOR
--- NOTE | 2021-07-04 17:38 | NUR ---
CALL PLACED AND VOICEMAIL LEFT FOR PT SON ([facility]) REGARDING D/C TRANSPORTATION HOME.AWAITING RETURN CALL.
--- NOTE | 2021-07-04 18:53 | NUR ---
MULTIPLE ATTEMPTS TO CONTACT PT SON FOR D/C HOME UNSUCCESSFUL;ELODIA SEPULVEDA NOTIFIED AND NEW ORDER TO OBTAIN IV ACCESS AND REPLACE TELE MONITORING;#22G TO RFA STARTED WITH X1 ATTEMPT, PT TOLERATED WELL;PT DENIES ANY ADDITIONAL NEEDS;CALL LIGHT AND BED ALARM IN PLACE;WILL CONTINUE TO MONITOR
[2021-07-04 19:00] VITALS: BP 100/37
--- NOTE | 2021-07-04 19:18 | NUR ---
Subjective: Patietn feels tired and shaky this morning. Objective: Patient did the following activity today: Patient did seated B LE exercises today doing hip flexion, hip adduction and abduction, knee extension, hamstring curls, and ankle pumps for 10 to 15 reps. Patient also did bed mobility, transfers, and short distance gait ADLs with mod A x 1. Assessment: Patient continues to require mod A x 1 due to B LE muscle weakness and inconsistency with proper body mechanics. Plan: Patient to continue with PT intervention to help improve functional weight bearing ADL capability with decreased assistance required to complete ADLs. Am Pac score of patient today is 10 points, discharge recommendation will be extended rehab facility placement.
--- NOTE | 2021-07-04 20:00 | NUR ---
PATIENT MEDICATION AND ASSEMENT COMPLETED.
--- NOTE | 2021-07-04 20:30 | NUR ---
PATEITNE ASSESMENT COMPELTED AT THIS TIME. MEDICATIOSN ADMINSTERED PER EMAR.
--- NOTE | 2021-07-04 21:15 | NUR ---
Spoke with patient's son earlier, who stated that he never agreed to take the patient home. He is adamant that they cannot care for him and that they have a maintenance and engineering manager involved in seeking placement. He was advised that he would need to contact Case management in the morning. The primary nurse for the patient was advised of same.
[2021-07-05] VITALS (7 sets, daily range): BP systolic 81–142; BP diastolic 42–80
--- NOTE | 2021-07-05 | NUR ---
PATIENT UP IN THE SHOWER. COLOSTOMY BAG CHANGED AT THIS TIME. PT TOLERATED WELL.
--- NOTE | 2021-07-05 00:30 | NUR ---
PATIENT INCREASINGLY AGITATED SITTING IN BEDSIDE RECLINER. TELE OFF AND REFSING TO PUT BACK ON.GOWN OFF, BLANKET PROVIDED. PATIENT WITHIN VISUAL FIELD AT ALL TIMES.
--- NOTE | 2021-07-05 05:45 | NUR ---
PATIENT ASSISTED BACK TO BED, LESS AGITATED, COVERED UP. TELE AND GOWN REPLACED. RESTING COMFORTABLY.
--- NOTE | 2021-07-05 08:00 | NUR ---
PT SLEEPING IN BED. NO DISTRESS NOTED. EVEN AND UNLABORED RESPIRATIONS; CLEAR LUNG SOUNDS UPON AUSCULTATION. ACTIVE BOWEL SOUNDS X4 QUADRANTS. TELEMETRY IN PLACE. BED ALARM SET. SAFETY PRECAUTIONS IN PLACE. CALL LIGHT WITHIN REACH.
--- NOTE | 2021-07-05 08:00 | NUR ---
SHIFT CHANGE REPORT, PT SLEEPING SOUNDLY AND SNORING, HS RN REPORTED HE WAS AWAKE ALL NIGHT, BREATHING EVEN AND NON-LABORED, NO SIGN DISCOMFORT, TELE MONITOR IN PLACE, CALL [place] IN REACH AND BED LOCKED IN LOWEST POSITION.
--- NOTE | 2021-07-05 12:00 | NUR ---
STILL SLEEPING AND SLEPT THROUGH BEDBATH AND COLONOSTOMY CARE, WAKES UP SLIGHTLY AFTER MUCH TACTILE STIMULATION AND WAS ABLE TO TAKE MEDS AND HAVE ORAL FLUIDS. HE ANSWERS APPROPRIATELY TO QUESTIONS, HIS DAUGHTER CATHI IS AT BEDSIDE AND ASSISTING HIM WITH MEAL, WILL CONTINUE TO MONITOR.
--- NOTE | 2021-07-05 12:00 | NUR ---
PT AWAKE IN BED. NO DISTRESS NOTED. PT DENIES PAIN AT THE MOMENT. TELEMETRY IN PLACE. CALL LIGHT WITHIN REACH.
--- NOTE | 2021-07-05 16:00 | NUR ---
PT IN BED. NO DISTRESS NOTED. PT HELPED WITH COLOSTOMY AND PERICARE BY SHA Schmitt LPN. TELEMETRY IN PLACE. PT REQUESTED A SNACK. CALL LIGHT WITHIN REACH.
--- NOTE | 2021-07-05 19:55 | NUR ---
PATIENT ALERT AND ORIENTED. PLEASANT. ABLE TO MAKE NEEDS KNOWN. ASSESSMENT COMPLETE. NO SIGNS OF DISTRESS NOTED. NO COMPLAINTS OF PAIN. NOTIFIED PROVIDER OF PATIENTS LOW BP OF 81/42. PROVIDER TO PUT ORDER IN FOR 1L BOLUS. PATIENTS ASYMPTOMATIC. ''THIS IS THE BEST DOYLE FELT IN A LONG TIME''. CALL LIGHT AND BELONGINGS REMAIN IN REACH.
--- NOTE | 2021-07-05 22:06 | NUR ---
Subjective: Patient states that B LE not hurting today. Objective: Patient did the following: Patient did B LE seated AROM exercises: hip flexion, hip adduction and abduction, knee flexion and extension, and ankle pumps for 10 reps x 2 sets with 1 rest break. Patient also did bed mobility, transfers, and short distance gait ADLs with min A x 1 (4 to 5 steps). Assessment: patient continues to struggle with unsteady dynamic balance and transfer ADLs due to muscle weakness and inconsistency with proper body mechanics. Plan: Patient to continue with present PT intervention to improve muscle strength and dynamic balance to help patient get back to near PLOF. Am PAc score today of 11 points, discharge recommendation still with extended care facility placement.
--- NOTE | 2021-07-05 23:35 | NUR ---
PATIENT RESTING IN BED. NO COMPLAINTS VOICED AT THIS TIME. NO SIGNS OF DISTRESS. CALL LIGHT AND BELONGINGS REMAIN IN REACH.
[2021-07-06] VITALS (9 sets, daily range): BP systolic 84–110; BP diastolic 44–70
--- NOTE | 2021-07-06 04:35 | NUR ---
PATIENT RESTING IN BED ON HIS RIGHT SIDE. NO SIGNS OF DISTRESS. NO COMPLAINTS OF PAIN. CALL LIGHT AND BELONGINGS REMAIN IN REACH.
[2021-07-06 05:31] LABS: HEMATOCRIT 23.1 % (39.0-50.0); MEAN CELL VOLUME 97.1 fL CALC (80.0-100.0); MEAN CORPUSCULAR HGB CONC 29.9 g/dL CAL (32.0-36.0); RED BLOOD COUNT 2.38 mill/uL (4.70-6.10)
[2021-07-06 05:44] LABS: ANION GAP 7 (6-22 (CALC)); BUN 17 mg/dL (8-23); BUN/CREATININE RATIO 16 (12-20 (CALC)); CARBON DIOXIDE 24 mmol/l (22-30); CHLORIDE 111 mmol/l (95-108); CREATININE 1.1 mg/dL (0.7-1.3); GFR > 60 ML/MIN (>=60 (CALC)); GFR FOR AFR.AMER. > 60 ML/MIN (>=60 (CALC)); MAGNESIUM 1.6 mg/dL (1.6-2.3); SODIUM 138 mmol/l (137-146)
[2021-07-06 05:46] LABS: HEMOGLOBIN 6.9 g/dl (14.0-18.0)
[2021-07-06 05:50] LABS: POTASSIUM 3.8 mmol/l (3.5-5.1)
--- NOTE | 2021-07-06 05:50 | NUR ---
LAB CALLED AT 0546 NOTIFYING PATIENTS HGB WAS 6.9. BOARDER HAND PROVIDER NOTIFIED AND NEW ORDERS RECEIVED.
--- NOTE | 2021-07-06 08:00 | NUR ---
VITALS ALLOWED AT THIS TIME. BP: 91/53 TEMP: 98.4 HR: 68 SPO2:98 RR: 18 ENTRY LEVEL MANAGEMENT CARTEE NOTIFIED OF BP. STATED HOLD OFF BP MEDICATION TILL AFTER BLOOD ADMINISTRATION.
--- NOTE | 2021-07-06 08:45 | NUR ---
DR. COOK AND TAPAN AT BEDSIDE
--- NOTE | 2021-07-06 09:14 | NUR ---
ELMA MENDES ESTABLISHED NRE IV 2OG RH FLUSHED WITH BLOOD RETURN.
--- NOTE | 2021-07-06 09:15 | NUR ---
BLOOD TRANSFUSION BEGAN. 1 UNIT OF RBC IV 20 RH.
--- NOTE | 2021-07-06 11:36 | NUR ---
BLOOD TRANSFUSION IS COMPLETE. PT TOLERATED WELL. NO REACTION OCCURED. TELE MONITOR IN PLACE. IV RH PATENT. TELE MONITOR IN PLACE. FALL/SAFETY PRECAUTONS IN PLACE. CALL LIGHT IS WITHIN REACH
[2021-07-06] MEDS ORDERED: PEPCID20 MG PO (12:42)
[2021-07-06] MEDS ORDERED: ASPIRIN 81 LOW81 MG PO (12:52)
--- NOTE | 2021-07-06 13:48 | NUR ---
PT RESTING WITH EYES CLOSED AT THIS TIME. BREATHING IS EVEN AND UNLABORED. TELE MONITOR IN PLACE. IV PATENT. FALL/SAFTEY PRECAUTIONS IN PLACE. CALL LIGHT IS WITHIN REACH
--- NOTE | 2021-07-06 15:50 | NUR ---
PT RESTING IN BED IS ALERT. TELE MONITOR IN PLACE. IV PATENT. PT STATES NO PAIN AT THIS TIME. OCCULT SAMPLE OBTAINED. FALL/SAFTEY PRECAUTIONS IN PLACE. CALL LIGHT WITHIN REACH
--- NOTE | 2021-07-06 16:58 | NUR ---
Discharge instructions given. Patient verbalizes understanding of same. Discharged in stable condition via Wheelchair to [facility] with [facility] staff. All belongings sent with pt. IV: 22G RA REMOVED FULLY CATHETER INTACT. 20G RH REMOVED FULLY CATHETER INTACT. PACKET GIVEN TO PT
--- NOTE | 2021-07-06 19:58 | NUR ---
Subjective: Patient states that pain on B feet has decreased in intensity following administration of medicine carried out by patient's nurse today. Objective: Patient did the following activity: Patient did seated B LE AROM exercises: hip flexion, knee extension, hamstring curls, hip adduction and abduction, and ankle pumps for 2 x 15 reps with 1 to 2 rest periods. Patient also participated with bed mobility, transfers, and gait ADLs (covering 3 to 4 steps) on level surfaces with min A x 1. Assessment: Patient continues to require min A x 1 with exercises and functional weight bearing ADLs secondary to muscle weakness and inconsistency with practice of proper body mechanics. Plan: Patient to continue with PT intervention, concentrating on practice of proper body mechanics while carrying out strengthening exercise protocol to help improve dynamic balance capability, thus decreasing reliance on caregiver. Am Pac score right now at 11 points, discharge recommendation would be extended care facility placement.
== END 2021-07-06 16:58 | DRG 312 ==
LOC: ED 06:41 → ED-I 07:10 → ED 07:10 → ED-I 09:02 → ED 09:31 → MS2 09:32
PROVIDERS: Emergency Medicine; ADMIT Hospitalist; ATTEND Hospitalist
PROC: 30233N1 Transfusion of Nonautologous Red Blood Cells into Peripheral Vein, Percutaneous Approach (ICD-10-PCS; principal; 2021-07-06)
DX: R55 Syncope and collapse (principal); S00.03XA Contusion of scalp, initial encounter; R41.0 Disorientation, unspecified; E87.6 Hypokalemia; I48.0 Paroxysmal atrial fibrillation; I10 Essential (primary) hypertension; I25.10 Atherosclerotic heart disease of native coronary artery without angina pectoris; E78.5 Hyperlipidemia, unspecified; I95.9 Hypotension, unspecified; D64.9 Anemia, unspecified; I25.2 Old myocardial infarction; W18.30XA Fall on same level, unspecified, initial encounter; Y92.008 Other place in unspecified non-institutional (private) residence as the place of occurrence of the external cause; Z95.5 Presence of coronary angioplasty implant and graft; Z85.038 Personal history of other malignant neoplasm of large intestine; Z79.01 Long term (current) use of anticoagulants; Z93.3 Colostomy status; Z90.49 Acquired absence of other specified parts of digestive tract; Z87.891 Personal history of nicotine dependence; Z86.73 Personal history of transient ischemic attack (TIA), and cerebral infarction without residual deficits; Z20.822 Contact with and (suspected) exposure to COVID-19
CPT/HCPCS: P9016